=== PATIENT | male | born 1965 | race Caucasian/White ===

== ENCOUNTER 2017-04-07 16:56 | Inpatient (IN) | payer OTHER ==
[~2017-04-07] VITALS: Ht 175.3 cm; Wt 55.6 kg
[~2017-04-07 16:56] MED LIST: ACAM333T7 PO; AMLO10TA2 PO; AMOX1TAB61 PO; BACL10TA PO; CELE200C PO; CHOL500015 PO; CITA40TA5 PO; CYCL10TA2 PO; ERGO500012 PO; FERR-26 PO; FLUO20CA8 PO; FLUO20TA11 PO; FURO-69 PO; GABA-585 PO; HYDR-2666 PO; IBUP200T58 PO; LACT10SO35 PO; LACT20SO PO; LIDO700A4 TP; LISI1TAB5 PO; METO100T11 PO; METR500T PO; MORP30TA3 PO; OXYC10TA PO; PANT40TA3 PO; POTA20TA4 PO; PROAIR HFA8.5 GM INH; SPIR50TA2 PO; TEMA30CA PO; TIZA4TAB PO; TIZA4TAB8 PO; ZOLP10TA4 PO; acetaminophen
[2017-04-07 18:14] LABS: BASO % 1 % (0-3); EOS % 1 % (0-3); HEMATOCRIT 33.3 % (39.0-53.0); HEMOGLOBIN 11.3 g/dL (13.0-17.5); LYMPH # 1.1 x10^3/uL (1.0-4.8); LYMPH % 22 % (24-48); MEAN CORPUSCULAR HEMOGLOBIN 34 pg (25-35); MEAN CORPUSCULAR HGB CONC 34 g/dL (31-37); MEAN CORPUSCULAR VOLUME 100 fL (79-100); MONO % 9 % (0-9); NEUT % 67 % (31-73); PLATELET COUNT 110 x10^3/uL (140-400); RED BLOOD COUNT 3.32 x10^6/uL (4.30-5.70); RED CELL DISTRIBUTION WIDTH 14.7 % (11.5-14.5); WHITE BLOOD COUNT 4.8 x10^3/uL (4.0-11.0)
[2017-04-07 18:21] LABS: BASE EXCESS COOX 4 mmol/L (-3-3); CARBON MONOXIDE 6.4 % (0.0-1.9); HCO3 COOX 28 mmol/L (21-28); METHEMOGLOBIN 0.4 % (0.0-1.9); OXYHEMOGLOBIN 89.1 %; PCO2 COOX 39 mmHg (35-46); PH COOX 7.47 (7.35-7.45); PO2 COOX 84 mmHg (75-108); SAT O2 COOX 96 % (92-99); TOTAL HEMOGLOBIN 10.6 g/dL
[2017-04-07 18:23] LABS: INR 1.1 (0.8-1.1); PROTHROMBIN TIME PATIENT 13.2 SEC (11.7-14.0)
[2017-04-07 18:34] LABS: ALBUMIN 2.5 g/dL (3.4-5.0); CALCIUM 8.7 mg/dL (8.5-10.1); CREATININE 0.7 mg/dL (0.7-1.3); DIRECT BILIRUBIN 4.7 mg/dL (0.0-0.2); GFR 119.4; TOTAL BILIRUBIN 5.3 mg/dL (0.2-1.0); TOTAL PROTEIN 8.5 g/dL (6.4-8.2)
[2017-04-07 18:43] LABS: POTASSIUM 2.2 mmol/L (3.5-5.1)
[2017-04-07] MEDS ORDERED: POTASSIUM CHLORIDE 20 MEQ TABLET.ER. PO ONE (19:00)
--- NOTE | 2017-04-07 19:05 | PHYS DOC ---
Past Medical History Past Medical History: Hypertension, Liver Disease, Other Additional Past Medical Histor: ESLD and recurrent ascites,myelitis, paraplegia , chronic back pain Past Surgical History: Other Additional Past Surgical Histo: TRACH W/ TAKEDOWN, LEFT HIP REPAIR Alcohol Use: None Additional Information: quit drinking 6 months ago Drug Use: Marijuana Adult General Chief Complaint Chief Complaint: MULTIPLE COMPLAINTS HPI HPI Patient is a 51 year old male with end stage liver disease and recurrent ascites who presents by EMS from public place after bystanders noticed him falling asleep frequently. States he has some general weakness. He notes recently leaving the hospital and making the choice to not go to rehab or nursing facility. States he has been taking his meds, but cannot name them. Otherwise states he is feeling ok other than chronic pains and forming ulcers to bilateral buttocks. He denies injury since discharge from hospital. Denies abdominal pain, n/v, diarrhea, f/c, headache, vision changes, dizziness, numbness, tingling, focal weakness. Review of Systems Review of Systems Constitutional: Denies fever or chills [] Eyes: Denies change in visual acuity, redness, or eye pain [] HENT: Denies nasal congestion or sore throat [] Respiratory: Denies cough or shortness of breath [] Cardiovascular: No additional information not addressed in HPI [] GI: Denies abdominal pain, nausea, vomiting, bloody stools or diarrhea [] : Denies dysuria or hematuria [] Musculoskeletal: Denies joint pain [] Integument: Denies rash [] Neurologic: Denies headache, focal weakness or sensory changes [] Endocrine: Denies polyuria or polydipsia [] Current Medications Current Medications Allergies Allergies Allergies Coded Allergies Type Severity Reaction Last Updated Verified I S O L A T I O N *CONTACT* Allergy Unknown 07/15/16 Yes No Known Medication Allergies Allergy Unknown 07/15/16 Yes Physical Exam Physical Exam Constitutional: Well developed, well nourished, no acute distress, non-toxic appearance. [] HENT: Normocephalic, atraumatic, bilateral external ears normal, oropharynx moist, nose normal. [] Eyes: PERRLA, EOMI. [] Neck: Normal range of motion, supple. [] Cardiovascular:Heart rate regular rhythm, no murmur [] Lungs & Thorax: Bilateral breath sounds clear to auscultation [] Abdomen: Bowel sounds normal, soft, no tenderness. [] Skin: Warm, dry, no erythema, no rash. Jaundiced. Right buttock with shallow ulceration [] Back: No tenderness, no CVA tenderness. [] Extremities: No tenderness, ROM intact, no edema. [] Neurologic: Alert but speaks slowly and oriented X 3, normal motor function, normal sensory function, no focal deficits noted. [] Psychologic: Affect normal, judgement normal, mood normal. [] Current Patient Data Vital Signs Vital Signs Date Time Temp Pulse Resp B/P (MAP) Pulse Ox O2 Delivery O2 Flow Rate FiO2 04/07/17 18:37 76 115/63 (80) Room Air 04/07/17 18:07 99 04/07/17 17:37 28 04/07/17 17:07 97.6 97.6 Lab Values Laboratory Tests Test 04/07/17 17:41 04/07/17 18:05 O2 Saturation 96 % (92-99) Arterial Blood pH 7.47 (7.35-7.45) H Arterial Blood pCO2 at Patient Temp 39 mmHg (35-46) Arterial Blood pO2 at Patient Temp 84 mmHg (75-108) Arterial Blood HCO3 28 mmol/L (21-28) Arterial Blood Base Excess 4 mmol/L (-3-3) H Oxyhemoglobin 89.1 % Methemoglobin 0.4 % (0.0-1.9) Carbon Monoxide, Quantitative 6.4 % (0.0-1.9) H FiO2 21.0 White Blood Count 4.8 x10^3/uL (4.0-11.0) Red Blood Count 3.32 x10^6/uL (4.30-5.70) L Hemoglobin 11.3 g/dL (13.0-17.5) L Hematocrit 33.3 % (39.0-53.0) L Mean Corpuscular Volume 100 fL (79-100) Mean Corpuscular Hemoglobin 34 pg (25-35) Mean Corpuscular Hemoglobin Concent 34 g/dL (31-37) Red Cell Distribution Width 14.7 % (11.5-14.5) H Platelet Count 110 x10^3/uL (140-400) L Neutrophils (%) (Auto) 67 % (31-73) Lymphocytes (%) (Auto) 22 % (24-48) L Monocytes (%) (Auto) 9 % (0-9) Eosinophils (%) (Auto) 1 % (0-3) Basophils (%) (Auto) 1 % (0-3) Neutrophils # (Auto) 3.2 x10^3uL (1.8-7.7) Lymphocytes # (Auto) 1.1 x10^3/uL (1.0-4.8) Monocytes # (Auto) 0.4 x10^3/uL (0.0-1.1) Eosinophils # (Auto) 0.1 x10^3/uL (0.0-0.7) Basophils # (Auto) 0.0 x10^3/uL (0.0-0.2) Prothrombin Time 13.2 SEC (11.7-14.0) Prothrombin Time INR 1.1 (0.8-1.1) Sodium Level 137 mmol/L (136-145) Potassium Level 2.2 mmol/L (3.5-5.1) *L Chloride Level 96 mmol/L (98-107) L Carbon Dioxide Level 33 mmol/L (21-32) H Anion Gap 8 (6-14) Blood Urea Nitrogen 14 mg/dL (8-26) Creatinine 0.7 mg/dL (0.7-1.3) Estimated GFR (Cockcroft-Gault) 119.4 Glucose Level 80 mg/dL (70-99) Calcium Level 8.7 mg/dL (8.5-10.1) Total Bilirubin 5.3 mg/dL (0.2-1.0) H Direct Bilirubin 4.7 mg/dL (0.0-0.2) H Aspartate Amino Transferase (AST) 50 U/L (15-37) H Alanine Aminotransferase (ALT) 31 U/L (16-63) Alkaline Phosphatase 401 U/L (46-116) H Ammonia 22 mcmol/L (11-34) Total Protein 8.5 g/dL (6.4-8.2) H Albumin 2.5 g/dL (3.4-5.0) L Laboratory Tests 04/07/17 18:05 Laboratory Tests 04/07/17 18:05 Course & Med Decision Making Course & Med Decision Making Pertinent Labs and Imaging studies reviewed. (See chart for details) Has significant hypokalemia, but laboratory evaluation is otherwise largely unremarkable. Will admit for IV replacement. Discussed case with Dr. Allen, who will admit. Dragon Disclaimer Dragon Disclaimer This electronic medical record was generated, in whole or in part, using a voice recognition dictation system. Departure Departure Impression: Primary Impression: Metabolic encephalopathy Additional Impression: Hypokalemia Disposition: ADMITTED INPATIENT Condition: STABLE Referrals: VANI BOLTON MD (PCP) Problem Qualifiers Faiza CORREA MD April 07, 2017 19:05
[2017-04-07] MEDS: POTASSIUM CHLORIDE 10MEQ 100 ML IV SCH ×4 (19:12→22:42)
[2017-04-07] MEDS: IV NORMAL SALINE 1000ML BAG 1,000 ML IV SCH (19:15)
--- NOTE | 2017-04-07 19:16 | PDOC1 ---
History and Physical Date of Admission Date of Admission DATE: 04/07/17 TIME: 19:11 Identification/Chief Complaint Chief Complaint falling asleep at [facility] Problems: Source Source: Caregiver, Chart review, Patient History of Present Illness History of Present Illness 51 y.o male, known to us, lots of admits, last one i saw him was for: (Jul 2016) 1. Acute upper GI bleed due to duodenal ulcers s/p EGD with emergent IR intervention to stop bleeding 2. Hypovolemic/Hemorrhagic shock, resolved 3. Hypoxic respiratory failure, resolved 4. ETOH abuse 5. Hypertension, stab;e 6. Hx of alcoholic cirrhosis 7. Tremors resting 8. ETOH withdrawal 9. Paraplegic - wheel chair bound 10. Hypokalemia 11. Back pain Abd tender to palpation, tympanic, dull too, seems some have ascites, falls asleep. K 2.2, no ammonia, rest of labs and VS ok. Pt admitted for K replacement, drowsiness and further work up No UDs yet. Rest of hx limited, drowsy - .lots of GI probs.past medical Past Medical History Cardiovascular: AFIB, HTN Pulmonary: COPD CENTRAL NERVOUS SYSTEM: Other GI: GI bleed, Other Heme/Onc: Anemia NOS Hepatobiliary: Other Psych: Addictions Musculoskeletal: Muscle atrophy, Other Rheumatologic: No pertinent hx Infectious disease: No pertinent hx Renal/: No pertinent hx Endocrine: No pertinent hx Past Surgical History Past Surgical History: Other Family History Family History: Diabetes, Hypertension Social History Smoke: No ALCOHOL: none Drugs: None Current Problem List Problem List Problems Medical Problems: (1) Hypokalemia Status: Acute (2) Metabolic encephalopathy Status: Acute Problems: Current Medications Current Medications Current Medications Potassium Chloride 100 ml @ 100 mls/hr Q1H IV ; Start 04/07/17 at 19:00; Stop 04/07/17 at 22:59 Potassium Chloride (Klor-Con) 40 meq 1X ONCE PO ; Start 04/07/17 at 19:00; Stop 04/07/17 at 19:01; Status DC Active Scripts Active Lasix (Furosemide) 20 Mg Tablet 60 Tab PO DAILY Reported Vitamin D2 (Ergocalciferol (Vitamin D2)) 50,000 Unit Capsule 1 Cap PO 3X/WEEK Generlac (Lactulose) 10 Gm/15 Ml Solution 10 Gm PO BID Citalopram Hbr (Citalopram Hydrobromide) 40 Mg Tablet 1 Tab PO DAILY Fluoxetine Hcl 20 Mg Tablet 30 Mg PO DAILY Gabapentin 100 Mg Capsule 100 Mg PO TID Acamprosate Calcium 333 Mg Tablet.dr 2 Tab PO TID 90 Days Tizanidine Hcl 4 Mg Tablet 4 Mg PO PRN Q8HRS PRN Baclofen 10 Mg Tablet 2 Tab PO TID Zolpidem Tartrate 10 Mg Tablet 1 Tab PO QHS Temazepam 30 Mg Capsule 30 Mg PO HS PRN Lactulose 20 Gm/30 Ml Solution 20 Gm PO TID Cyclobenzaprine Hcl 10 Mg Tablet 1 Tab PO TID PRN Protonix (Pantoprazole Sodium) 40 Mg Tablet.dr 40 Mg PO DAILY Amlodipine Besylate 10 Mg Tablet 10 Mg PO DAILY Gave this morning Take tomorrow morning Allergies Allergies: Coded Allergies: I S O L A T I O N *CONTACT* (Verified Allergy, Unknown, 07/15/16) mrsa + No Known Medication Allergies (Verified Allergy, Unknown, 07/15/16) ROS Review of System cant be obtained, drowsy Physical Exam General: No acute distress, Other (drowsy) HEENT: Atraumatic Lungs: Normal air movement, Other (dec BS poor effort) Heart: S1S2, RRR, no thrills, no rubs Cardiovascular: S1, S2 Breasts: Normal Abdomen: Soft, Other (ascites, tender to palpation) Rectal Exam: not examined PELVIC: Nml ext genitalia Extremities: No clubbing, No cyanosis, No edema, Normal pulses, No tenderness/ swelling Skin: No rashes, No breakdown, No significant lesion Neuro: Normal gait, Normal speech, Strength at 5/5 X4 ext, Normal tone, Sensation intact, Cranial nerves 3-12 NL, Reflexes 2+ Psych/Mental Status: Other (cant assess) Vitals Vitals Vital Signs Date Time Temp Pulse Resp B/P (MAP) Pulse Ox O2 Delivery O2 Flow Rate FiO2 04/07/17 18:37 76 115/63 (80) Room Air 04/07/17 18:07 99 04/07/17 17:37 28 04/07/17 17:07 97.6 97.6 Labs Labs Laboratory Tests Test 04/07/17 17:41 04/07/17 18:05 O2 Saturation 96 % (92-99) Arterial Blood pH 7.47 (7.35-7.45) Arterial Blood pCO2 at Patient Temp 39 mmHg (35-46) Arterial Blood pO2 at Patient Temp 84 mmHg (75-108) Arterial Blood HCO3 28 mmol/L (21-28) Arterial Blood Base Excess 4 mmol/L (-3-3) Oxyhemoglobin 89.1 % Methemoglobin 0.4 % (0.0-1.9) Carbon Monoxide, Quantitative 6.4 % (0.0-1.9) FiO2 21.0 White Blood Count 4.8 x10^3/uL (4.0-11.0) Red Blood Count 3.32 x10^6/uL (4.30-5.70) Hemoglobin 11.3 g/dL (13.0-17.5) Hematocrit 33.3 % (39.0-53.0) Mean Corpuscular Volume 100 fL (79-100) Mean Corpuscular Hemoglobin 34 pg (25-35) Mean Corpuscular Hemoglobin Concent 34 g/dL (31-37) Red Cell Distribution Width 14.7 % (11.5-14.5) Platelet Count 110 x10^3/uL (140-400) Neutrophils (%) (Auto) 67 % (31-73) Lymphocytes (%) (Auto) 22 % (24-48) Monocytes (%) (Auto) 9 % (0-9) Eosinophils (%) (Auto) 1 % (0-3) Basophils (%) (Auto) 1 % (0-3) Neutrophils # (Auto) 3.2 x10^3uL (1.8-7.7) Lymphocytes # (Auto) 1.1 x10^3/uL (1.0-4.8) Monocytes # (Auto) 0.4 x10^3/uL (0.0-1.1) Eosinophils # (Auto) 0.1 x10^3/uL (0.0-0.7) Basophils # (Auto) 0.0 x10^3/uL (0.0-0.2) Prothrombin Time 13.2 SEC (11.7-14.0) Prothromb Time International Ratio 1.1 (0.8-1.1) Sodium Level 137 mmol/L (136-145) Potassium Level 2.2 mmol/L (3.5-5.1) Chloride Level 96 mmol/L (98-107) Carbon Dioxide Level 33 mmol/L (21-32) Anion Gap 8 (6-14) Blood Urea Nitrogen 14 mg/dL (8-26) Creatinine 0.7 mg/dL (0.7-1.3) Estimated GFR (Cockcroft-Gault) 119.4 Glucose Level 80 mg/dL (70-99) Calcium Level 8.7 mg/dL (8.5-10.1) Total Bilirubin 5.3 mg/dL (0.2-1.0) Direct Bilirubin 4.7 mg/dL (0.0-0.2) Aspartate Amino Transf (AST/SGOT) 50 U/L (15-37) Alanine Aminotransferase (ALT/SGPT) 31 U/L (16-63) Alkaline Phosphatase 401 U/L (46-116) Ammonia 22 mcmol/L (11-34) Total Protein 8.5 g/dL (6.4-8.2) Albumin 2.5 g/dL (3.4-5.0) Laboratory Tests Test 04/07/17 17:41 04/07/17 18:05 O2 Saturation 96 % (92-99) Arterial Blood pH 7.47 (7.35-7.45) Arterial Blood pCO2 at Patient Temp 39 mmHg (35-46) Arterial Blood pO2 at Patient Temp 84 mmHg (75-108) Arterial Blood HCO3 28 mmol/L (21-28) Arterial Blood Base Excess 4 mmol/L (-3-3) Oxyhemoglobin 89.1 % Methemoglobin 0.4 % (0.0-1.9) Carbon Monoxide, Quantitative 6.4 % (0.0-1.9) FiO2 21.0 White Blood Count 4.8 x10^3/uL (4.0-11.0) Red Blood Count 3.32 x10^6/uL (4.30-5.70) Hemoglobin 11.3 g/dL (13.0-17.5) Hematocrit 33.3 % (39.0-53.0) Mean Corpuscular Volume 100 fL (79-100) Mean Corpuscular Hemoglobin 34 pg (25-35) Mean Corpuscular Hemoglobin Concent 34 g/dL (31-37) Red Cell Distribution Width 14.7 % (11.5-14.5) Platelet Count 110 x10^3/uL (140-400) Neutrophils (%) (Auto) 67 % (31-73) Lymphocytes (%) (Auto) 22 % (24-48) Monocytes (%) (Auto) 9 % (0-9) Eosinophils (%) (Auto) 1 % (0-3) Basophils (%) (Auto) 1 % (0-3) Neutrophils # (Auto) 3.2 x10^3uL (1.8-7.7) Lymphocytes # (Auto) 1.1 x10^3/uL (1.0-4.8) Monocytes # (Auto) 0.4 x10^3/uL (0.0-1.1) Eosinophils # (Auto) 0.1 x10^3/uL (0.0-0.7) Basophils # (Auto) 0.0 x10^3/uL (0.0-0.2) Prothrombin Time 13.2 SEC (11.7-14.0) Prothromb Time International Ratio 1.1 (0.8-1.1) Sodium Level 137 mmol/L (136-145) Potassium Level 2.2 mmol/L (3.5-5.1) Chloride Level 96 mmol/L (98-107) Carbon Dioxide Level 33 mmol/L (21-32) Anion Gap 8 (6-14) Blood Urea Nitrogen 14 mg/dL (8-26) Creatinine 0.7 mg/dL (0.7-1.3) Estimated GFR (Cockcroft-Gault) 119.4 Glucose Level 80 mg/dL (70-99) Calcium Level 8.7 mg/dL (8.5-10.1) Total Bilirubin 5.3 mg/dL (0.2-1.0) Direct Bilirubin 4.7 mg/dL (0.0-0.2) Aspartate Amino Transf (AST/SGOT) 50 U/L (15-37) Alanine Aminotransferase (ALT/SGPT) 31 U/L (16-63) Alkaline Phosphatase 401 U/L (46-116) Ammonia 22 mcmol/L (11-34) Total Protein 8.5 g/dL (6.4-8.2) Albumin 2.5 g/dL (3.4-5.0) VTE Prophylaxis Ordered VTE Prophylaxis Devices: Yes VTE Pharmacological Prophylaxi: Yes Assessment/Plan Assessment/Plan 1. Drowsiness, encephalopathy - unclear etiology - check CT scan (abdomen is tender and has ascites), check ammonia, lost of known GI probs in past 2. Hypokalemia, critical - er to replace HX of: 1. Acute upper GI bleed due to duodenal ulcers s/p EGD with emergent IR intervention to stop bleeding 2. Hypovolemic/Hemorrhagic shock, resolved 3. Hypoxic respiratory failure, resolved 4. ETOH abuse 5. Hypertension, stab;e 6. Hx of alcoholic cirrhosis 7. Tremors resting 8. ETOH withdrawal 9. Paraplegic - wheel chair bound 10. Hypokalemia 11. Back pain PLAN: Admit tele replace K Check CT abd Check ammonia rest of plan pending course PT/OT \Await home emds WOF: anemia, falls DVT prophy Seen at ER CHIDI RIVAS MD April 07, 2017 19:16
[2017-04-07] MEDS ORDERED: MAGNESIUM HYDROXIDE 2,400 MG/30 ML ORAL.SUSP. PO PRN (19:30)
[2017-04-07] MEDS ORDERED: CALCIUM CARBONATE 500 MG TAB.CHEW PO PRN (19:30)
[2017-04-07] MEDS ORDERED: BISACODYL 10 MG SUPP.RECT. PR PRN (19:30)
[2017-04-07] MEDS ORDERED: PROCHLORPERAZINE 25 MG SUPP.RECT. PR PRN (19:30)
[2017-04-07] MEDS ORDERED: MORPHINE SULFATE 2 MG/ML DISP.SYRIN. IV PRN (19:30)
[2017-04-07] MEDS ORDERED: PROCHLORPERAZINE 10 MG/2 ML VIAL. IV PRN (19:30)
[2017-04-07] MEDS ORDERED: MAG HYDROX/ALUMINUM HYD/SIMETH 30 ML ORAL.SUSP PO PRN (19:30)
[2017-04-07] MEDS ORDERED: LACTULOSE 20 GM/30 ML SOLUTION. PO PRN (19:30)
[2017-04-07] MEDS ORDERED: ONDANSETRON PF 4 MG/2 ML VIAL. IV PRN (19:30)
[2017-04-07] MEDS ORDERED: tiZANidine 4 MG TABLET. PO PRN (20:00)
[2017-04-07] MEDS ORDERED: TEMAZEPAM 15 MG CAPSULE PO PRN (20:00)
[2017-04-07] MEDS ORDERED: CYCLOBENZAPRINE 10 MG TABLET. PO PRN (20:00)
[2017-04-07 20:10] VITALS: BP 131/71
--- NOTE | 2017-04-07 20:48 | RAD ---
PROCEDURE Limited abdominal ultrasound dated 04/07/2017. HISTORY Quantify ascites. TECHNIQUE Limited 4 quadrant ultrasound performed. COMPARISON None. FINDINGS Small to moderate amount of ascites throughout. The largest pocket is located in the right upper quadrant measures up to 11.9 centimeter. There is also a 10 centimeter pocket in the right lower quadrant. IMPRESSION Small to moderate amount of ascites. Electronically signed by: Roman Weiner (April 07, 2017 20:47:52)
[2017-04-07] MEDS ORDERED: LACTULOSE 10 GM PO SCH (21:00)
[2017-04-07] MEDS: LACTULOSE 20 GM/30 ML SOLUTION. PO SCH (21:25)
[2017-04-07] MEDS: BACLOFEN 10 MG TABLET. PO SCH (21:25)
[2017-04-07] MEDS: DOCUSATE SODIUM 100 MG CAPSULE. PO SCH (21:25)
[2017-04-07] MEDS: GABAPENTIN 100 MG CAPSULE. PO SCH (21:25)
[2017-04-07] MEDS: oxyCODONE IR 5 MG TABLET PO PRN (21:27)
[2017-04-07] MEDS: ACAMPROSATE CALCIUM PO SCH (21:50)
--- NOTE | 2017-04-07 21:50 | ACF ---
Admission Forms Criteria HYPONATREMIA; HYPERNATREMIA; HYPOKALEMIA; HYPERKALEMIA; HYPOCALCEMIA; HYPERCALCEMIA Clinical Indications for Inpatient Care (Place 'X' for any and all applicable criteria): Ongoing inpatient care may be indicated for ANY ONE of the following [G](1)(2)(3 )(5): [ ]I. Hyponatremia with ANY ONE of the following: [ ]a) Sodium less than 130 mEq/L (mmol/L) (new) (6)(22) [ ]b) Sodium less than 135 mEq/L (mmol/L) with ANY ONE of the following: [ ]i) Severe medical etiology requiring inpatient management (eg, heart failure, hypovolemia) [ ]ii) Altered mental status [ ]iii) Seizures [ ]II. Hypernatremia with ANY ONE of the following: [ ]a) Sodium greater than 155 mEq/L (mmol/L) [ ]b) Sodium greater than 150 mEq/L (mmol/L) with ANY ONE of the following: [ ] i) Altered mental status [ ]ii) Seizures [ ]iii) Severe medical etiology (eg, hypovolemia, diabetes insipidus) [ ]iv) Severe weakness [ ]v) Severe medical etiology (eg, hemolysis, infection, drug overdose) [X ]III. Hypokalemia with ANY ONE of the following: [X ]a) Potassium less than 2.5 mEq/L (mmol/L) despite outpatient and emergency treatment [ ]b) Potassium less than 3.0 mEq/L (mmol/L) with ANY ONE of the following: [ ]i) Weakness [ ]ii) Cardiac abnormality (eg, arrhythmia, conduction disturbance) [ ]iii) Cardiac ischemia [ ]iv) Ileus [ ]v) Ongoing medical cause requiring inpatient management. ( e.g., acute renal wasting, SIADH) [ ]vi) Other severe symptoms [ ] IV. Hyperkalemia with ANY ONE of the following: [ ]a) Potassium greater than 6.5 mEq/L (mmol/L) [ ]b) Potassium greater than 5 mEq/L (mmol/L) with ANY ONE of the following: [ ]i) Severe ECG findings [H] [ ]ii) Acute worsening of renal failure (creatinine greater than 2.5 mg/dL (221 micromoles/L) or significant elevation for age and size) [ ] V. Hypocalcemia with ANY ONE of the following: [ ]a) Calcium less than 7 mg/dL (1.75 mmol/L) despite outpatient and emergency treatment(19) [ ]b) Calcium less than 8 mg/dL (2 mmol/L) with significant symptoms or findings; examples include: [ ]i) Cardiac abnormality (eg, arrhythmia or conduction disturbance) [ ]ii) Altered mental status [ ]iii) Seizures [ ]iv) Breathing difficulty [ ]v) Muscle spasms [ ]. Hypercalcemia with ANY ONE of the following: [ ]a) Calcium greater than 14 mg/dL (3.5 mmol/L) [ ]b) Calcium greater than 12 mg/dL (3 mmol/L) with ANY ONE of the following: [ ]i) Significant dehydration or hypovolemia as indicated by ANY ONE of the following(2): [ ]1. Clinically significant dehydration as indicated by ANY ONE of the following: [ ]A. Acute loss of weight from baseline (5% of body weight in adults, 9% in pediatric patients) [ ]B. Hemodynamic instability [ ]C. Acute renal failure [ ]D. Serum sodium greater than 150 mEq/L (mmol/L) [ ]2) Dehydration that is persistent indicated by ALL of the following: [ ]A. Oral rehydration therapy not tolerated or insufficient to adequately correct dehydration [ ]B. Appropriate intravenous treatment (eg, fluids ) does not readily correct dehydration ie, after 12 to 24 hours of treatment) [ ]ii) Significant symptoms or findings; examples include: [ ]1) Altered mental status [ ]2) Cardiac abnormality (eg, arrhythmia, conduction disturbance) [ ]3) Cardiac abnormality (eg, arrhythmia, conduction disturbance) The original [facility] content created by [email or web address] has been revised. The portions of the content which have been revised are identified through the use of italic text or in bold, and [facility] has neither reviewed nor approved the modified material. All other unmodified content is copyright [facility] [employer] Please see references footnoted in the original [facility] [employer] edition 2016 Admission Criteria Met?: Yes YEIMI FRANCIS April 07, 2017 21:50
[2017-04-07 23:59] VITALS: BP 134/67
[2017-04-08 07:00] VITALS: BP 124/71
[2017-04-08] MEDS ORDERED: PANTOPRAZOLE 40 MG TABLET.DR. PO SCH (07:00)
[2017-04-08] MEDS: IV NORMAL SALINE 1000ML BAG 1,000 ML IV SCH (08:12)
[2017-04-08] MEDS: ACAMPROSATE CALCIUM PO SCH ×2 (08:13→14:13)
[2017-04-08] MEDS: LACTULOSE 20 GM/30 ML SOLUTION. PO SCH ×2 (08:13→14:13)
[2017-04-08] MEDS: DOCUSATE SODIUM 100 MG CAPSULE. PO SCH (08:14)
[2017-04-08] MEDS: BACLOFEN 10 MG TABLET. PO SCH ×2 (08:14→14:12)
[2017-04-08] MEDS: GABAPENTIN 100 MG CAPSULE. PO SCH ×2 (08:14→14:12)
[2017-04-08] MEDS: oxyCODONE/APAP 5/325 1 TAB TABLET PO PRN ×2 (08:29→14:13)
[2017-04-08] MEDS ORDERED: FLUoxetine HCL 10 MG CAPSULE PO SCH (09:00)
[2017-04-08] MEDS ORDERED: ENOXAPARIN 40 MG/0.4 ML SYRINGE. SQ SCH (09:00)
[2017-04-08] MEDS ORDERED: amLODIPine BESYLATE 10 MG TABLET PO SCH (09:00)
[2017-04-08] MEDS ORDERED: FUROSEMIDE 20 MG TABLET PO SCH (09:00)
[2017-04-08] MEDS ORDERED: CITALOPRAM 20 MG TABLET. PO SCH (09:00)
[2017-04-08] MEDS: oxyCODONE IR 5 MG TABLET PO PRN (10:43)
[2017-04-08] MEDS ORDERED: POTA20TA84 PO (10:46)
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
[2017-04-08 11:04] VITALS: BP 124/69
[2017-04-08 11:07] LABS: CALCIUM 8.1 mg/dL (8.5-10.1); CREATININE 0.5 mg/dL (0.7-1.3); POTASSIUM 3.3 mmol/L (3.5-5.1)
[2017-04-08] MEDS ORDERED: POTASSIUM CHLORIDE 20 MEQ TABLET.ER. PO ONE (12:00)
[2017-04-10] MEDS ORDERED: ERGOCALCIFEROL (VITAMIN D2) 50,000 UNIT CAPSULE. PO SCH (09:00)
== END 2017-04-08 14:35 | disposition home or self-care (01) | DRG 640 ==
LOC: ER 17:48 → 5 SOUTH 18:50
PROVIDERS: ADMIT Internal Medicine; ATTEND Internal Medicine
DX: E87.6 Hypokalemia (principal); G93.41 Metabolic encephalopathy; F10.239 Alcohol dependence with withdrawal, unspecified; G82.20 Paraplegia, unspecified; I10 Essential (primary) hypertension; E86.1 Hypovolemia; G89.29 Other chronic pain; K70.31 Alcoholic cirrhosis of liver with ascites; K72.90 Hepatic failure, unspecified without coma; J44.9 Chronic obstructive pulmonary disease, unspecified; I48.91 Unspecified atrial fibrillation; Z83.3 Family history of diabetes mellitus; Z99.3 Dependence on wheelchair; Z82.49 Family history of ischemic heart disease and other diseases of the circulatory system
CPT/HCPCS: 36415; 36600; 76705; 80048; 80076; 82140; 82805; 85027; 85610; 87641; 96374; J1650; J2270; J3480; J7030; 99285-25

== ENCOUNTER 2017-05-09 12:09 | Inpatient (IN) | payer OTHER ==
[2017-05-08 22:00] VITALS: BP 121/82
[2017-05-09] VITALS (17 sets, daily range): BP systolic 115–171; BP diastolic 72–85
[~2017-05-09] VITALS: Ht 175.3 cm; Wt 63.7 kg
[~2017-05-09 12:09] MED LIST changes: -CHOL500015 PO; +CHOL500045 PO; -ERGO500012 PO; +ERGO500027 PO; -HYDR-2666 PO; +HYDR-2758 PO; +POTA20TA84 PO
[2017-05-09] MEDS ORDERED: IV NORMAL SALINE 1000ML BAG 1,000 ML IV ONE ×2 (12:15→13:00)
[2017-05-09 12:31] LABS: BASO % 1 % (0-3); EOS % 0 % (0-3); HEMATOCRIT 26.3 % (39.0-53.0); HEMOGLOBIN 8.9 g/dL (13.0-17.5); LYMPH # 0.7 x10^3/uL (1.0-4.8); LYMPH % 12 % (24-48); MEAN CORPUSCULAR HEMOGLOBIN 33 pg (25-35); MEAN CORPUSCULAR HGB CONC 34 g/dL (31-37); MEAN CORPUSCULAR VOLUME 98 fL (79-100); MONO % 8 % (0-9); NEUT % 79 % (31-73); PLATELET COUNT 85 x10^3/uL (140-400); RED CELL DISTRIBUTION WIDTH 14.8 % (11.5-14.5)
--- NOTE | 2017-05-09 12:35 | RAD ---
EXAM: CHEST 1 VIEW History: Altered mental status COMPARISON: 03/28/2017 TECHNIQUE: Single portable radiograph of the chest FINDINGS: The cardiac silhouette is unremarkable. The lungs are clear bilaterally. The costophrenic sulci are clear and well demarcated. IMPRESSION: No radiographic evidence of an acute cardiopulmonary process.
[2017-05-09 12:40] LABS: INR 1.4 (0.8-1.1); PROTHROMBIN TIME PATIENT 15.9 SEC (11.7-14.0)
[2017-05-09] MEDS ORDERED: NALOXONE 2 MG in IV DEXTROSE 5% 500 ML IV ONE (12:45)
[2017-05-09] MEDS ORDERED: NALOXONE 2 MG/2 ML DISP.SYRIN. IV ONE (12:45)
--- NOTE | 2017-05-09 12:45 | EKG ---
[facility] [address] [place] [address] Test Date: 2017-05-09 Test Time: 12:16:53 Pat Name: SUSAN SOW Department: Room: Gender: M Chemistry Associate: : 1965 Requested By: Faiza CORREA Order Number: [id number] Reading MD: Ky Reeves Measurements Intervals [place] Rate: 75 P: 45 CT: 150 QRS: 61 QRSD: 76 T: 71 QT: 434 QTc: 488 Interpretive Statements SINUS RHYTHM LOW LIMB LEAD VOLTAGE PROLONGED QT RI6.01 Unconfirmed report Compared to ECG 03/15/2017 15:37:59 Prolonged QT interval now present T-wave abnormality no longer present Electronically Signed On 05-10-2017 11:24:57 CDT by Ky Reeves
[2017-05-09 12:51] LABS: BILIRUBIN,URINE SMALL (NEG); GLUCOSE,URINE NEGATIVE (NEG); NITRITE,URINE NEGATIVE (NEG); PH,URINE 5.5; PROTEIN,URINE NEGATIVE (NEG-TRACE)
[2017-05-09 12:57] LABS: CREATININE 0.7 mg/dL (0.7-1.3); GFR 119.4; POTASSIUM 3.3 mmol/L (3.5-5.1)
[2017-05-09 12:58] LABS: BARBITURATES NEG (NEG); BENZODIAZEPINES POS (NEG); CANNABINOIDS POS (NEG); COCAINE NEG (NEG); METHADONE NEG (NEG); OPIATES NEG (NEG); PHENCYCLIDINE NEG (NEG)
[2017-05-09 13:01] LABS: ALBUMIN 1.9 g/dL (3.4-5.0); ALBUMIN/GLOBULIN RATIO 0.4 (1.0-1.7); MAGNESIUM 1.8 mg/dL (1.8-2.4); TOTAL BILIRUBIN 2.9 mg/dL (0.2-1.0); TOTAL PROTEIN 6.4 g/dL (6.4-8.2)
[2017-05-09 13:06] LABS: BACTERIA,URINE 0 /HPF (0-FEW); SQUAMOUS EPITHELIAL CELL,UR FEW /LPF; WBC,URINE 20-40 /HPF (0-4)
--- NOTE | 2017-05-09 13:21 | RAD ---
Indication change in level of consciousness. Noncontrast images of the head were obtained. Note is made of a previous examination 03/15/2017. The calvarium appears unremarkable. No subdural or epidural hematoma is seen. There is no mass or midline shift. There is modest underlying atrophy. There is no hemorrhage. Acute finding is not seen. IMPRESSION: No acute intracranial finding seen PQRS Compliance Statement: One or more of the following individualized dose reduction techniques were utilized for this examination: 1. Automated exposure control 2. Adjustment of the mA and/or kV according to patient size 3. Use of iterative reconstruction technique
--- NOTE | 2017-05-09 13:22 | PHYS DOC ---
Past Medical History Past Medical History: Hypertension, Liver Disease, Renal Disease, Other Additional Past Medical Histor: ESLD and recurrent ascites,myelitis, paraplegia , chronic back pain Past Surgical History: Other Additional Past Surgical Histo: TRACH W/ TAKEDOWN, LEFT HIP REPAIR Alcohol Use: Heavy Drug Use: Marijuana Adult General Chief Complaint Chief Complaint: ALTERED MENTAL STATUS HPI HPI Patient is a 51 year old male who presents by EMS for altered mental status and low blood pressure. He was found by bystanders in his wheelchair next to a trash can. Patient states he was trying to take the trash out, but was generally too weak. He admits to taking pain medicine earlier today. EMS gave him 2 mg of Narcan without significant improvement of his mental status. Prehospital glucose was not low. He otherwise denies other complaints at this time. He denies headache, chest pain, dizziness, nausea or vomiting, diarrhea, dysuria, fever or chills. Review of Systems Review of Systems Constitutional: Denies fever or chills [] Eyes: Denies change in visual acuity, redness, or eye pain [] HENT: Denies nasal congestion or sore throat [] Respiratory: Denies cough or shortness of breath [] Cardiovascular: No additional information not addressed in HPI [] GI: Denies abdominal pain, nausea, vomiting, bloody stools or diarrhea [] : Denies dysuria or hematuria [] Musculoskeletal: Denies back pain or joint pain [] Integument: Denies rash or skin lesions [] Neurologic: Denies headache, focal weakness or sensory changes [] Endocrine: Denies polyuria or polydipsia [] Current Medications Current Medications Current Medications Medications (Trade) Dose Ordered Sig/Thao Start Time Stop Time Status Last Admin Dose Admin Naloxone HCl (Narcan) 2 mg 1X ONCE 05/09/17 12:45 05/09/17 12:46 DC 05/09/17 12:35 2 MG Naloxone HCl 2 mg/ Dextrose 502 ml @ 0 mls/hr 1X ONCE 05/09/17 12:45 05/09/17 13:12 DC 05/09/17 12:46 62.5 MLS/HR Sodium Chloride 1,000 ml @ 1,000 mls/hr 1X ONCE 05/09/17 13:00 05/09/17 13:59 DC 05/09/17 12:52 1,000 MLS/HR Allergies Allergies Allergies Coded Allergies Type Severity Reaction Last Updated Verified I S O L A T I O N *CONTACT* Allergy Unknown 07/15/16 Yes No Known Medication Allergies Allergy Unknown 07/15/16 Yes Physical Exam Physical Exam Constitutional: Thin, non-toxic appearance. [] HENT: Normocephalic, atraumatic, bilateral external ears normal, oropharynx moist, no oral exudates, nose normal. [] Eyes: PERRLA, EOMI, conjunctiva normal, no discharge. [] Neck: Normal range of motion, no tenderness, supple, no stridor. [] Cardiovascular:Heart rate regular rhythm [] Lungs & Thorax: Bilateral breath sounds clear to auscultation [] Abdomen: Bowel sounds normal, soft, no tenderness, no masses, no pulsatile masses, soft with distended. Rectal exam with light brown stool on glove. Few shallow ulcers to gluteal area bilaterally [] Skin: Warm, dry, no erythema, no rash. [] Back: No tenderness, no CVA tenderness. [] Extremities: No tenderness, ROM intact, no edema. [] Neurologic: Sleepy but arouses to painful stimuli, oriented X 3, paraplegic, normal sensory function. [] Psychologic: Affect normal, judgement normal, mood normal. [] Current Patient Data Vital Signs Vital Signs Date Time Temp Pulse Resp B/P (MAP) Pulse Ox O2 Delivery O2 Flow Rate FiO2 05/09/17 12:59 76 14 99/66 (77) 98 05/09/17 12:52 Room Air 05/09/17 12:09 97.6 97.6 Lab Values Laboratory Tests Test 05/09/17 12:18 05/09/17 12:44 05/09/17 13:17 White Blood Count 6.0 x10^3/uL (4.0-11.0) Red Blood Count 2.70 x10^6/uL (4.30-5.70) L Hemoglobin 8.9 g/dL (13.0-17.5) L Hematocrit 26.3 % (39.0-53.0) L Mean Corpuscular Volume 98 fL (79-100) Mean Corpuscular Hemoglobin 33 pg (25-35) Mean Corpuscular Hemoglobin Concent 34 g/dL (31-37) Red Cell Distribution Width 14.8 % (11.5-14.5) H Platelet Count 85 x10^3/uL (140-400) L Neutrophils (%) (Auto) 79 % (31-73) H Lymphocytes (%) (Auto) 12 % (24-48) L Monocytes (%) (Auto) 8 % (0-9) Eosinophils (%) (Auto) 0 % (0-3) Basophils (%) (Auto) 1 % (0-3) Neutrophils # (Auto) 4.8 x10^3uL (1.8-7.7) Lymphocytes # (Auto) 0.7 x10^3/uL (1.0-4.8) L Monocytes # (Auto) 0.5 x10^3/uL (0.0-1.1) Eosinophils # (Auto) 0.0 x10^3/uL (0.0-0.7) Basophils # (Auto) 0.0 x10^3/uL (0.0-0.2) Prothrombin Time 15.9 SEC (11.7-14.0) H Prothrombin Time INR 1.4 (0.8-1.1) H PTT 35 SEC (24-38) Sodium Level 137 mmol/L (136-145) Potassium Level 3.3 mmol/L (3.5-5.1) L Chloride Level 101 mmol/L (98-107) Carbon Dioxide Level 29 mmol/L (21-32) Anion Gap 7 (6-14) Blood Urea Nitrogen 13 mg/dL (8-26) Creatinine 0.7 mg/dL (0.7-1.3) Estimated GFR (Cockcroft-Gault) 119.4 BUN/Creatinine Ratio 19 (6-20) Glucose Level 97 mg/dL (70-99) Lactic Acid Level 1.3 mmol/L (0.4-2.0) Calcium Level 8.0 mg/dL (8.5-10.1) L Magnesium Level 1.8 mg/dL (1.8-2.4) Total Bilirubin 2.9 mg/dL (0.2-1.0) H Aspartate Amino Transferase (AST) 35 U/L (15-37) Alanine Aminotransferase (ALT) 23 U/L (16-63) Alkaline Phosphatase 241 U/L (46-116) H Ammonia 51 mcmol/L (11-34) H Troponin I Quantitative < 0.017 ng/mL (0.000-0.055) Total Protein 6.4 g/dL (6.4-8.2) Albumin 1.9 g/dL (3.4-5.0) L Albumin/Globulin Ratio 0.4 (1.0-1.7) L Ethyl Alcohol Level < 10 mg/dL (0-10) Urine Collection Type Unknown Urine Color [place] Urine Clarity Cloudy Urine pH 5.5 Urine Specific [place] 1.015 Urine Protein Negative mg/dL (NEG-TRACE) Urine Glucose (UA) Negative mg/dL (NEG) Urine Ketones (Stick) Negative mg/dL (NEG) Urine Blood Negative (NEG) Urine Nitrite Negative (NEG) Urine Bilirubin Small (NEG) Urine Urobilinogen Dipstick 1.0 mg/dL (0.2 mg/dL) Urine Leukocyte Esterase Moderate (NEG) Urine RBC 11-20 /HPF (0-2) Urine WBC 20-40 /HPF (0-4) Urine Squamous Epithelial Cells Few /LPF Urine Transitional Epithelial Cells Few /LPF Urine Amorphous Sediment Present /HPF Urine Bacteria 0 /HPF (0-FEW) Urine Hyaline Casts Many /HPF Urine Mucus Mod /LPF Urine Opiates Screen Neg (NEG) Urine Methadone Screen Neg (NEG) Urine Barbiturates Neg (NEG) Urine Phencyclidine Screen Neg (NEG) Urine Amphetamine/Methamphetamine Neg (NEG) Urine Benzodiazepines Screen Pos (NEG) Urine Cocaine Screen Neg (NEG) Urine Cannabinoids Screen Pos (NEG) Urine Ethyl Alcohol Neg (NEG) Stool Occult Blood Positive (NEG) Laboratory Tests 05/09/17 12:18 Laboratory Tests 05/09/17 12:18 EKG EKG EKG as interpreted by me as normal sinus rhythm, rate 75, no ST-T changes, normal intervals, no ectopy Radiology/Procedures Radiology/Procedures Chest xray as interpreted by me with no acute cardiopulmonary disease process Head CT without contrast IMPRESSION: No acute intracranial finding seen DICTATED and SIGNED BY: MARQUEZ RICHARDS MD DATE: 05/09/17 9588 Course & Med Decision Making Course & Med Decision Making Pertinent Labs and Imaging studies reviewed. (See chart for details) Laboratory evaluation reveals a lower hemoglobin prior; fecal occult is positive , however on exam have low concern for true positive. Laboratory evaluation is otherwise largely unremarkable. He was given 2 L of IV normal saline without significant improvement in systolic blood pressure, so Levophed was started. Suspect hypotension is related to medication versus less likely sepsis versus GI bleed, so antibiotics were not given at this time. Discussed case with Dr. Tavera, who will admit. Kina Disclaimer Dragon Disclaimer This electronic medical record was generated, in whole or in part, using a voice recognition dictation system. Critical Care Time Critical care time was 65 minutes exclusive of procedures. Departure Departure Impression: Primary Impression: Altered mental status Additional Impression: Hypotension Disposition: ADMITTED INPATIENT Condition: CRITICAL Referrals: VANI BOLTON MD (PCP) Problem Qualifiers Primary Impression: Altered mental status Altered mental status type: unspecified Qualified Codes: R41.82 - Altered mental status, unspecified Additional Impression: Hypotension Hypotension type: unspecified hypotension type Qualified Codes: I95.9 - Hypotension, unspecified Faiza CORREA MD May 09, 2017 13:22
[2017-05-09] MEDS ORDERED: NOREPINEPHRIN PREMIX 250 ML IV ONE (13:30)
[2017-05-09 13:35] LABS: NEG OBC FOB NEG; POS OBC FOB POS
[2017-05-09] MEDS ORDERED: ACETAMINOPHEN 325 MG TABLET. PO PRN (14:00)
[2017-05-09] MEDS ORDERED: ONDANSETRON PF 4 MG/2 ML VIAL. IV PRN (14:00)
--- NOTE | 2017-05-09 14:52 | RAD ---
Examination: Single frontal view of the abdomen History: History of NG tube placement. Comparison: 08/29/2013 Findings: The NG tube tip is identified just distal to the gastroesophageal junction in the stomach. The side-port of the NG tube is at the level of the gastroesophageal junction Bowel gas pattern appears unremarkable. Metallic coils project in the right midabdomen Impression: 1. The NG tube tip is in the stomach however the side-port of the NG tube is at the level of the gastroesophageal junction. Consider advancing the NG tube.
[2017-05-09] MEDS ORDERED: FURO40TA4 PO (15:03)
[2017-05-09] MEDS ORDERED: TIZA4TAB PO (15:07)
[2017-05-09] MEDS ORDERED: PREG150C PO (15:11)
[2017-05-09] MEDS ORDERED: hydrALAZINE 20 MG/ML VIAL. IVP PRN (16:00)
[2017-05-09] MEDS ORDERED: PNEUMOCOCCAL VAX SCREEN BY RX. MC ONE (18:00)
--- NOTE | 2017-05-09 19:07 | RAD ---
EXAM: Abdomen, single view. HISTORY: Nasogastric tube placement. COMPARISON: None. FINDINGS: A frontal view of the abdomen is obtained. There is a nasogastric tube within the proximal stomach. There are prominent air-filled loops of bowel within the upper abdomen. IMPRESSION: Nasogastric tube terminating within the proximal stomach. Electronically signed by: Niecy Rockwell MD (05/09/2017 7:04 PM)
[2017-05-09] MEDS: PREGABALIN 75 MG CAPSULE PO SCH (20:59)
[2017-05-09] MEDS: BACLOFEN 10 MG TABLET. PO SCH (20:59)
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
[2017-05-09] MEDS: GABAPENTIN 100 MG CAPSULE. PO SCH (21:00)
[2017-05-09] MEDS ORDERED: FUROSEMIDE 40 MG TABLET. PO SCH (21:00)
[2017-05-09] MEDS ORDERED: ACAMPROSATE CALCIUM PO SCH (21:00)
[2017-05-09] MEDS: LACTULOSE 20 GM/30 ML SOLUTION. PO SCH (21:00)
[2017-05-09] MEDS: TEMAZEPAM 15 MG CAPSULE PO PRN (21:00)
[2017-05-10] VITALS (12 sets, daily range): BP systolic 111–149; BP diastolic 68–87
[2017-05-10 05:20] LABS: BASO % 0 % (0-3); EOS % 1 % (0-3); HEMATOCRIT 31.4 % (39.0-53.0); HEMOGLOBIN 10.6 g/dL (13.0-17.5); LYMPH # 0.8 x10^3/uL (1.0-4.8); LYMPH % 12 % (24-48); MEAN CORPUSCULAR HEMOGLOBIN 33 pg (25-35); MEAN CORPUSCULAR HGB CONC 34 g/dL (31-37); MEAN CORPUSCULAR VOLUME 98 fL (79-100); MONO % 9 % (0-9); NEUT % 78 % (31-73); PLATELET COUNT 103 x10^3/uL (140-400); RED BLOOD COUNT 3.21 x10^6/uL (4.30-5.70); RED CELL DISTRIBUTION WIDTH 15.1 % (11.5-14.5); WHITE BLOOD COUNT 6.2 x10^3/uL (4.0-11.0)
[2017-05-10 05:26] LABS: INR 1.2 (0.8-1.1); PROTHROMBIN TIME PATIENT 14.8 SEC (11.7-14.0)
[2017-05-10 05:42] LABS: CALCIUM 8.3 mg/dL (8.5-10.1); CREATININE 0.5 mg/dL (0.7-1.3)
[2017-05-10 05:57] LABS: POTASSIUM 2.4 mmol/L (3.5-5.1)
[2017-05-10] MEDS ORDERED: POTASSIUM CHLORIDE 20 MEQ TABLET.ER. PO SCH (08:00)
[2017-05-10] MEDS ORDERED: LIDOCAINE 1% / SOD BICARB 8.4% 20 ML VIAL. IJ ONE ×2 (08:09→08:45)
--- NOTE | 2017-05-10 08:58 | PDOC ---
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 Post-Procedure Diagnosis Post-Procedure Diagnosis Same Procedure Performed Procedure Performed Sono guided Tx paracentesis, bedside in ICU Type of Anesthesia Type of Anesthesia Local Estimated Blood Loss EBL: Trace Specimens Specimans 9500 cc straw-clear ascites removed---sample to micro Condition of Patient Condition of Patient No change. Encephalopathic. No apparent complication. GIANFRANCO ALICEA MD May 10, 2017 08:58
[2017-05-10] MEDS ORDERED: ALBUMIN HUMAN 25% 200 ML IV ONE (09:00)
[2017-05-10] MEDS: LACTULOSE 20 GM/30 ML SOLUTION. PO SCH ×3 (09:00→20:28)
--- NOTE | 2017-05-10 09:07 | PDOC ---
PROGRESS NOTES Chief Complaint Chief Complaint cc: AMS A/P Hepatic encephalopathy: exacerbated with medications such as baclofen, and Lyrica. try lactulose Alcoholic cirrhosis, jaundice, ascites, encephalopathy: s/p paracentesis today. hold Lyrica, d/w pt about compilations such as worsening encephalopathy Severe hypokalemia: replaced Bacteremia: GNR, on cefepime follow cx, consult ID. Malnourished. : due to liver disease, prognosis poor/guarded. HTN Depression Vitals Vitals Vital Signs Date Time Temp Pulse Resp B/P (MAP) Pulse Ox O2 Delivery O2 Flow Rate FiO2 05/10/17 06:00 107 16 147/87 (107) 97 Room Air 05/10/17 01:00 98.6 98.6 Physical Exam General: Alert, Oriented X3, Other (malnourished, ) Heart: Normal S1, Other (TACHYCARDIA. ) Lungs: Clear, Other Abdomen: Normal bowel sounds, Other (Distended. ) Extremities: No clubbing Labs LABS Laboratory Tests Test 05/09/17 12:18 05/09/17 12:44 05/09/17 13:17 05/09/17 15:20 White Blood Count 6.0 x10^3/uL (4.0-11.0) Red Blood Count 2.70 x10^6/uL (4.30-5.70) Hemoglobin 8.9 g/dL (13.0-17.5) Hematocrit 26.3 % (39.0-53.0) Mean Corpuscular Volume 98 fL (79-100) Mean Corpuscular Hemoglobin 33 pg (25-35) Mean Corpuscular Hemoglobin Concent 34 g/dL (31-37) Red Cell Distribution Width 14.8 % (11.5-14.5) Platelet Count 85 x10^3/uL (140-400) Neutrophils (%) (Auto) 79 % (31-73) Lymphocytes (%) (Auto) 12 % (24-48) Monocytes (%) (Auto) 8 % (0-9) Eosinophils (%) (Auto) 0 % (0-3) Basophils (%) (Auto) 1 % (0-3) Neutrophils # (Auto) 4.8 x10^3uL (1.8-7.7) Lymphocytes # (Auto) 0.7 x10^3/uL (1.0-4.8) Monocytes # (Auto) 0.5 x10^3/uL (0.0-1.1) Eosinophils # (Auto) 0.0 x10^3/uL (0.0-0.7) Basophils # (Auto) 0.0 x10^3/uL (0.0-0.2) Prothrombin Time 15.9 SEC (11.7-14.0) Prothromb Time International Ratio 1.4 (0.8-1.1) Activated Partial Thromboplast Time 35 SEC (24-38) Sodium Level 137 mmol/L (136-145) Potassium Level 3.3 mmol/L (3.5-5.1) Chloride Level 101 mmol/L (98-107) Carbon Dioxide Level 29 mmol/L (21-32) Anion Gap 7 (6-14) Blood Urea Nitrogen 13 mg/dL (8-26) Creatinine 0.7 mg/dL (0.7-1.3) Estimated GFR (Cockcroft-Gault) 119.4 BUN/Creatinine Ratio 19 (6-20) Glucose Level 97 mg/dL (70-99) Lactic Acid Level 1.3 mmol/L (0.4-2.0) Calcium Level 8.0 mg/dL (8.5-10.1) Magnesium Level 1.8 mg/dL (1.8-2.4) Total Bilirubin 2.9 mg/dL (0.2-1.0) Aspartate Amino Transf (AST/SGOT) 35 U/L (15-37) Alanine Aminotransferase (ALT/SGPT) 23 U/L (16-63) Alkaline Phosphatase 241 U/L (46-116) Ammonia 51 mcmol/L (11-34) Troponin I Quantitative < 0.017 ng/mL (0.000-0.055) Total Protein 6.4 g/dL (6.4-8.2) Albumin 1.9 g/dL (3.4-5.0) Albumin/Globulin Ratio 0.4 (1.0-1.7) Ethyl Alcohol Level < 10 mg/dL (0-10) Urine Collection Type Unknown Urine Color [place] Urine Clarity Cloudy Urine pH 5.5 Urine Specific [place] 1.015 Urine Protein Negative mg/dL (NEG-TRACE) Urine Glucose (UA) Negative mg/dL (NEG) Urine Ketones (Stick) Negative mg/dL (NEG) Urine Blood Negative (NEG) Urine Nitrite Negative (NEG) Urine Bilirubin Small (NEG) Urine Urobilinogen Dipstick 1.0 mg/dL (0.2 mg/dL) Urine Leukocyte Esterase Moderate (NEG) Urine RBC 11-20 /HPF (0-2) Urine WBC 20-40 /HPF (0-4) Urine Squamous Epithelial Cells Few /LPF Urine Transitional Epithelial Cells Few /LPF Urine Amorphous Sediment Present /HPF Urine Bacteria 0 /HPF (0-FEW) Urine Hyaline Casts Many /HPF Urine Mucus Mod /LPF Urine Opiates Screen Neg (NEG) Urine Methadone Screen Neg (NEG) Urine Barbiturates Neg (NEG) Urine Phencyclidine Screen Neg (NEG) Urine Amphetamine/Methamphetamine Neg (NEG) Urine Benzodiazepines Screen Pos (NEG) Urine Cocaine Screen Neg (NEG) Urine Cannabinoids Screen Pos (NEG) Urine Ethyl Alcohol Neg (NEG) Stool Occult Blood Positive (NEG) Glucose (Fingerstick) 108 mg/dL (70-99) Test 05/10/17 04:20 White Blood Count 6.2 x10^3/uL (4.0-11.0) Red Blood Count 3.21 x10^6/uL (4.30-5.70) Hemoglobin 10.6 g/dL (13.0-17.5) Hematocrit 31.4 % (39.0-53.0) Mean Corpuscular Volume 98 fL (79-100) Mean Corpuscular Hemoglobin 33 pg (25-35) Mean Corpuscular Hemoglobin Concent 34 g/dL (31-37) Red Cell Distribution Width 15.1 % (11.5-14.5) Platelet Count 103 x10^3/uL (140-400) Neutrophils (%) (Auto) 78 % (31-73) Lymphocytes (%) (Auto) 12 % (24-48) Monocytes (%) (Auto) 9 % (0-9) Eosinophils (%) (Auto) 1 % (0-3) Basophils (%) (Auto) 0 % (0-3) Neutrophils # (Auto) 4.8 x10^3uL (1.8-7.7) Lymphocytes # (Auto) 0.8 x10^3/uL (1.0-4.8) Monocytes # (Auto) 0.5 x10^3/uL (0.0-1.1) Eosinophils # (Auto) 0.0 x10^3/uL (0.0-0.7) Basophils # (Auto) 0.0 x10^3/uL (0.0-0.2) Prothrombin Time 14.8 SEC (11.7-14.0) Prothromb Time International Ratio 1.2 (0.8-1.1) Activated Partial Thromboplast Time 37 SEC (24-38) Sodium Level 138 mmol/L (136-145) Potassium Level 2.4 mmol/L (3.5-5.1) Chloride Level 101 mmol/L (98-107) Carbon Dioxide Level 25 mmol/L (21-32) Anion Gap 12 (6-14) Blood Urea Nitrogen 11 mg/dL (8-26) Creatinine 0.5 mg/dL (0.7-1.3) Estimated GFR (Cockcroft-Gault) 176.0 Glucose Level 121 mg/dL (70-99) Calcium Level 8.3 mg/dL (8.5-10.1) Assessment and Plan Assessmemt and Plan Problems Medical Problems: (1) Altered mental status Status: Acute (2) Hypotension Status: Acute Problems: Comment Review of Relevant I have reviewed the following items reyna (where applicable) has been applied. Labs Laboratory Tests Test 05/09/17 12:18 05/09/17 12:44 05/09/17 13:17 05/09/17 15:20 White Blood Count 6.0 x10^3/uL (4.0-11.0) Red Blood Count 2.70 x10^6/uL (4.30-5.70) Hemoglobin 8.9 g/dL (13.0-17.5) Hematocrit 26.3 % (39.0-53.0) Mean Corpuscular Volume 98 fL (79-100) Mean Corpuscular Hemoglobin 33 pg (25-35) Mean Corpuscular Hemoglobin Concent 34 g/dL (31-37) Red Cell Distribution Width 14.8 % (11.5-14.5) Platelet Count 85 x10^3/uL (140-400) Neutrophils (%) (Auto) 79 % (31-73) Lymphocytes (%) (Auto) 12 % (24-48) Monocytes (%) (Auto) 8 % (0-9) Eosinophils (%) (Auto) 0 % (0-3) Basophils (%) (Auto) 1 % (0-3) Neutrophils # (Auto) 4.8 x10^3uL (1.8-7.7) Lymphocytes # (Auto) 0.7 x10^3/uL (1.0-4.8) Monocytes # (Auto) 0.5 x10^3/uL (0.0-1.1) Eosinophils # (Auto) 0.0 x10^3/uL (0.0-0.7) Basophils # (Auto) 0.0 x10^3/uL (0.0-0.2) Prothrombin Time 15.9 SEC (11.7-14.0) Prothromb Time International Ratio 1.4 (0.8-1.1) Activated Partial Thromboplast Time 35 SEC (24-38) Sodium Level 137 mmol/L (136-145) Potassium Level 3.3 mmol/L (3.5-5.1) Chloride Level 101 mmol/L (98-107) Carbon Dioxide Level 29 mmol/L (21-32) Anion Gap 7 (6-14) Blood Urea Nitrogen 13 mg/dL (8-26) Creatinine 0.7 mg/dL (0.7-1.3) Estimated GFR (Cockcroft-Gault) 119.4 BUN/Creatinine Ratio 19 (6-20) Glucose Level 97 mg/dL (70-99) Lactic Acid Level 1.3 mmol/L (0.4-2.0) Calcium Level 8.0 mg/dL (8.5-10.1) Magnesium Level 1.8 mg/dL (1.8-2.4) Total Bilirubin 2.9 mg/dL (0.2-1.0) Aspartate Amino Transf (AST/SGOT) 35 U/L (15-37) Alanine Aminotransferase (ALT/SGPT) 23 U/L (16-63) Alkaline Phosphatase 241 U/L (46-116) Ammonia 51 mcmol/L (11-34) Troponin I Quantitative < 0.017 ng/mL (0.000-0.055) Total Protein 6.4 g/dL (6.4-8.2) Albumin 1.9 g/dL (3.4-5.0) Albumin/Globulin Ratio 0.4 (1.0-1.7) Ethyl Alcohol Level < 10 mg/dL (0-10) Urine Collection Type Unknown Urine Color [place] Urine Clarity Cloudy Urine pH 5.5 Urine Specific [place] 1.015 Urine Protein Negative mg/dL (NEG-TRACE) Urine Glucose (UA) Negative mg/dL (NEG) Urine Ketones (Stick) Negative mg/dL (NEG) Urine Blood Negative (NEG) Urine Nitrite Negative (NEG) Urine Bilirubin Small (NEG) Urine Urobilinogen Dipstick 1.0 mg/dL (0.2 mg/dL) Urine Leukocyte Esterase Moderate (NEG) Urine RBC 11-20 /HPF (0-2) Urine WBC 20-40 /HPF (0-4) Urine Squamous Epithelial Cells Few /LPF Urine Transitional Epithelial Cells Few /LPF Urine Amorphous Sediment Present /HPF Urine Bacteria 0 /HPF (0-FEW) Urine Hyaline Casts Many /HPF Urine Mucus Mod /LPF Urine Opiates Screen Neg (NEG) Urine Methadone Screen Neg (NEG) Urine Barbiturates Neg (NEG) Urine Phencyclidine Screen Neg (NEG) Urine Amphetamine/Methamphetamine Neg (NEG) Urine Benzodiazepines Screen Pos (NEG) Urine Cocaine Screen Neg (NEG) Urine Cannabinoids Screen Pos (NEG) Urine Ethyl Alcohol Neg (NEG) Stool Occult Blood Positive (NEG) Glucose (Fingerstick) 108 mg/dL (70-99) Test 05/10/17 04:20 White Blood Count 6.2 x10^3/uL (4.0-11.0) Red Blood Count 3.21 x10^6/uL (4.30-5.70) Hemoglobin 10.6 g/dL (13.0-17.5) Hematocrit 31.4 % (39.0-53.0) Mean Corpuscular Volume 98 fL (79-100) Mean Corpuscular Hemoglobin 33 pg (25-35) Mean Corpuscular Hemoglobin Concent 34 g/dL (31-37) Red Cell Distribution Width 15.1 % (11.5-14.5) Platelet Count 103 x10^3/uL (140-400) Neutrophils (%) (Auto) 78 % (31-73) Lymphocytes (%) (Auto) 12 % (24-48) Monocytes (%) (Auto) 9 % (0-9) Eosinophils (%) (Auto) 1 % (0-3) Basophils (%) (Auto) 0 % (0-3) Neutrophils # (Auto) 4.8 x10^3uL (1.8-7.7) Lymphocytes # (Auto) 0.8 x10^3/uL (1.0-4.8) Monocytes # (Auto) 0.5 x10^3/uL (0.0-1.1) Eosinophils # (Auto) 0.0 x10^3/uL (0.0-0.7) Basophils # (Auto) 0.0 x10^3/uL (0.0-0.2) Prothrombin Time 14.8 SEC (11.7-14.0) Prothromb Time International Ratio 1.2 (0.8-1.1) Activated Partial Thromboplast Time 37 SEC (24-38) Sodium Level 138 mmol/L (136-145) Potassium Level 2.4 mmol/L (3.5-5.1) Chloride Level 101 mmol/L (98-107) Carbon Dioxide Level 25 mmol/L (21-32) Anion Gap 12 (6-14) Blood Urea Nitrogen 11 mg/dL (8-26) Creatinine 0.5 mg/dL (0.7-1.3) Estimated GFR (Cockcroft-Gault) 176.0 Glucose Level 121 mg/dL (70-99) Calcium Level 8.3 mg/dL (8.5-10.1) Laboratory Tests Test 05/09/17 12:18 05/09/17 12:44 05/09/17 13:17 05/09/17 15:20 White Blood Count 6.0 x10^3/uL (4.0-11.0) Red Blood Count 2.70 x10^6/uL (4.30-5.70) Hemoglobin 8.9 g/dL (13.0-17.5) Hematocrit 26.3 % (39.0-53.0) Mean Corpuscular Volume 98 fL (79-100) Mean Corpuscular Hemoglobin 33 pg (25-35) Mean Corpuscular Hemoglobin Concent 34 g/dL (31-37) Red Cell Distribution Width 14.8 % (11.5-14.5) Platelet Count 85 x10^3/uL (140-400) Neutrophils (%) (Auto) 79 % (31-73) Lymphocytes (%) (Auto) 12 % (24-48) Monocytes (%) (Auto) 8 % (0-9) Eosinophils (%) (Auto) 0 % (0-3) Basophils (%) (Auto) 1 % (0-3) Neutrophils # (Auto) 4.8 x10^3uL (1.8-7.7) Lymphocytes # (Auto) 0.7 x10^3/uL (1.0-4.8) Monocytes # (Auto) 0.5 x10^3/uL (0.0-1.1) Eosinophils # (Auto) 0.0 x10^3/uL (0.0-0.7) Basophils # (Auto) 0.0 x10^3/uL (0.0-0.2) Prothrombin Time 15.9 SEC (11.7-14.0) Prothromb Time International Ratio 1.4 (0.8-1.1) Activated Partial Thromboplast Time 35 SEC (24-38) Sodium Level 137 mmol/L (136-145) Potassium Level 3.3 mmol/L (3.5-5.1) Chloride Level 101 mmol/L (98-107) Carbon Dioxide Level 29 mmol/L (21-32) Anion Gap 7 (6-14) Blood Urea Nitrogen 13 mg/dL (8-26) Creatinine 0.7 mg/dL (0.7-1.3) Estimated GFR (Cockcroft-Gault) 119.4 BUN/Creatinine Ratio 19 (6-20) Glucose Level 97 mg/dL (70-99) Lactic Acid Level 1.3 mmol/L (0.4-2.0) Calcium Level 8.0 mg/dL (8.5-10.1) Magnesium Level 1.8 mg/dL (1.8-2.4) Total Bilirubin 2.9 mg/dL (0.2-1.0) Aspartate Amino Transf (AST/SGOT) 35 U/L (15-37) Alanine Aminotransferase (ALT/SGPT) 23 U/L (16-63) Alkaline Phosphatase 241 U/L (46-116) Ammonia 51 mcmol/L (11-34) Troponin I Quantitative < 0.017 ng/mL (0.000-0.055) Total Protein 6.4 g/dL (6.4-8.2) Albumin 1.9 g/dL (3.4-5.0) Albumin/Globulin Ratio 0.4 (1.0-1.7) Ethyl Alcohol Level < 10 mg/dL (0-10) Urine Collection Type Unknown Urine Color [place] Urine Clarity Cloudy Urine pH 5.5 Urine Specific [place] 1.015 Urine Protein Negative mg/dL (NEG-TRACE) Urine Glucose (UA) Negative mg/dL (NEG) Urine Ketones (Stick) Negative mg/dL (NEG) Urine Blood Negative (NEG) Urine Nitrite Negative (NEG) Urine Bilirubin Small (NEG) Urine Urobilinogen Dipstick 1.0 mg/dL (0.2 mg/dL) Urine Leukocyte Esterase Moderate (NEG) Urine RBC 11-20 /HPF (0-2) Urine WBC 20-40 /HPF (0-4) Urine Squamous Epithelial Cells Few /LPF Urine Transitional Epithelial Cells Few /LPF Urine Amorphous Sediment Present /HPF Urine Bacteria 0 /HPF (0-FEW) Urine Hyaline Casts Many /HPF Urine Mucus Mod /LPF Urine Opiates Screen Neg (NEG) Urine Methadone Screen Neg (NEG) Urine Barbiturates Neg (NEG) Urine Phencyclidine Screen Neg (NEG) Urine Amphetamine/Methamphetamine Neg (NEG) Urine Benzodiazepines Screen Pos (NEG) Urine Cocaine Screen Neg (NEG) Urine Cannabinoids Screen Pos (NEG) Urine Ethyl Alcohol Neg (NEG) Stool Occult Blood Positive (NEG) Glucose (Fingerstick) 108 mg/dL (70-99) Test 05/10/17 04:20 White Blood Count 6.2 x10^3/uL (4.0-11.0) Red Blood Count 3.21 x10^6/uL (4.30-5.70) Hemoglobin 10.6 g/dL (13.0-17.5) Hematocrit 31.4 % (39.0-53.0) Mean Corpuscular Volume 98 fL (79-100) Mean Corpuscular Hemoglobin 33 pg (25-35) Mean Corpuscular Hemoglobin Concent 34 g/dL (31-37) Red Cell Distribution Width 15.1 % (11.5-14.5) Platelet Count 103 x10^3/uL (140-400) Neutrophils (%) (Auto) 78 % (31-73) Lymphocytes (%) (Auto) 12 % (24-48) Monocytes (%) (Auto) 9 % (0-9) Eosinophils (%) (Auto) 1 % (0-3) Basophils (%) (Auto) 0 % (0-3) Neutrophils # (Auto) 4.8 x10^3uL (1.8-7.7) Lymphocytes # (Auto) 0.8 x10^3/uL (1.0-4.8) Monocytes # (Auto) 0.5 x10^3/uL (0.0-1.1) Eosinophils # (Auto) 0.0 x10^3/uL (0.0-0.7) Basophils # (Auto) 0.0 x10^3/uL (0.0-0.2) Prothrombin Time 14.8 SEC (11.7-14.0) Prothromb Time International Ratio 1.2 (0.8-1.1) Activated Partial Thromboplast Time 37 SEC (24-38) Sodium Level 138 mmol/L (136-145) Potassium Level 2.4 mmol/L (3.5-5.1) Chloride Level 101 mmol/L (98-107) Carbon Dioxide Level 25 mmol/L (21-32) Anion Gap 12 (6-14) Blood Urea Nitrogen 11 mg/dL (8-26) Creatinine 0.5 mg/dL (0.7-1.3) Estimated GFR (Cockcroft-Gault) 176.0 Glucose Level 121 mg/dL (70-99) Calcium Level 8.3 mg/dL (8.5-10.1) Microbiology 05/09/17 Blood Culture - Final, Complete Medications Current Medications Sodium Chloride 1,000 ml @ 1,000 mls/hr 1X ONCE IV Last administered on 12:27; Start 05/09/17 at 12:15; Stop 05/09/17 at 13:14; Status DC Naloxone HCl 2 mg/ Dextrose 502 ml @ 0 mls/hr 1X ONCE IV Last administered on 05/09/17 12:46; Start 05/09/17 at 12:45; Stop 05/09/17 at 13:12; Status DC Naloxone HCl (Narcan) 2 mg 1X ONCE IV Last administered on 05/09/17 12:35; Start 05/09/17 at 12:45; Stop 05/09/17 at 12:46; Status DC Sodium Chloride 1,000 ml @ 1,000 mls/hr 1X ONCE IV Last administered on 12:52; Start 05/09/17 at 13:00; Stop 05/09/17 at 13:59; Status DC Norepinephrine Bitartrate 250 ml @ 0 mls/hr 1X ONCE IV Last administered on 13:31; Start 05/09/17 at 13:30; Stop 05/09/17 at 13:31; Status DC Ondansetron HCl (Zofran) 4 mg PRN Q8HRS PRN IV NAUSEA/VOMITING; Start 05/09/17 at 14:00; Stop 05/10/17 at 13:59 Acetaminophen (Tylenol) 650 mg PRN Q4HRS PRN PO FEVER; Start 05/09/17 at 14:00 ; Stop 05/10/17 at 13:59 Amlodipine Besylate (Norvasc) 10 mg DAILY PO ; Start 05/10/17 at 09:00 Baclofen (Lioresal) 20 mg TID PO Last administered on 05/09/17 20:59; Start at 21:00 Furosemide (Lasix) 60 mg TID PO Last administered on 05/09/17 20:59; Start at 21:00; Stop 05/10/17 at 06:08; Status DC Gabapentin (Neurontin) 100 mg TID PO Last administered on 05/09/17 21:00; Start 05/09/17 at 21:00 Pantoprazole Sodium (Protonix) 40 mg DAILYAC PO ; Start 05/10/17 at 07:30 Temazepam (Restoril) 30 mg PRN QHS PRN PO INSOMNIA Last administered on 21:00; Start 05/09/17 at 16:00 Non-Formulary Medication 2 tab TID PO ; Start 05/09/17 at 21:00; Status UNV Citalopram Hydrobromide (CeleXA) 40 mg DAILY PO ; Start 05/10/17 at 09:00 Lactulose 20 gm TID PO Last administered on 05/09/17 21:00; Start 05/09/17 at 21:00 Potassium Chloride (Klor-Con) 40 meq DAILYWBKFT PO ; Start 05/10/17 at 08:00; Stop 05/10/17 at 08:00; Status DC Pregabalin (Lyrica) 150 mg TID PO Last administered on 05/09/17 20:59; Start 05/09/17 at 21:00 Hydralazine HCl (Apresoline) 10 mg PRN Q4HRS PRN IVP ELEVATED BP, SEE COMMENTS ; Start 05/09/17 at 16:00 Potassium Chloride/Sodium Chloride 1,000 ml @ 50 mls/hr Q20H IV Last administered on 05/09/17 18:19; Start 05/09/17 at 16:30 Pneumococcal Polyvalent Vaccine (Do NOT chart on this placeholder) 1 each 1X ONCE MC ; Start 05/09/17 at 18:00; Stop 05/09/17 at 18:01; Status UNV Furosemide (Lasix) 60 mg DAILY PO ; Start 05/10/17 at 09:00 Potassium Chloride (Klor-Con) 40 meq TID PO ; Start 05/10/17 at 09:00 Lidocaine/Sodium Bicarbonate (Buffered Lidocaine 1%) 20 ml STK-MED ONCE IJ ; Start 05/10/17 at 08:09; Stop 05/10/17 at 08:10; Status DC Lidocaine/Sodium Bicarbonate (Buffered Lidocaine 1%) 10 ml 1X ONCE IJ Last administered on 05/10/17 08:50; Start 05/10/17 at 08:45; Stop 05/10/17 at 08:46 ; Status DC Albumin Human 200 ml @ 200 mls/hr 1X ONCE IV ; Start 05/10/17 at 09:00; Stop 05/10/17 at 09:59 Active Scripts Active K-Tab ER (Potassium Chloride) 20 Meq Tablet.er 40 Meq PO DAILY 30 Days Reported Lyrica (Pregabalin) 150 Mg Capsule 150 Mg PO TID 30 Days Tizanidine Hcl 4 Mg Tablet 2 Tab PO Q8HRS Furosemide 40 Mg Tablet 1.5 Tab PO TID Vitamin D2 (Ergocalciferol (Vitamin D2)) 50,000 Unit Capsule 1 Cap PO 3X/WEEK Citalopram Hbr (Citalopram Hydrobromide) 40 Mg Tablet 1 Tab PO DAILY Fluoxetine Hcl 20 Mg Tablet 30 Mg PO DAILY Gabapentin 100 Mg Capsule 100 Mg PO TID Acamprosate Calcium 333 Mg Tablet.dr 2 Tab PO TID 90 Days Baclofen 10 Mg Tablet 2 Tab PO TID Zolpidem Tartrate 10 Mg Tablet 1 Tab PO QHS Temazepam 30 Mg Capsule 30 Mg PO HS PRN Lactulose 20 Gm/30 Ml Solution 20 Gm PO TID Cyclobenzaprine Hcl 10 Mg Tablet 1 Tab PO TID PRN Protonix (Pantoprazole Sodium) 40 Mg Tablet.dr 40 Mg PO DAILY Amlodipine Besylate 10 Mg Tablet 10 Mg PO DAILY Gave this morning Take tomorrow morning Vitals/I & O Vital Sign - Last 24 Hours 05/09/17 05/09/17 05/09/17 05/09/17 12:09 12:52 12:59 13:32 Temp 97.6 97.6 Pulse 77 73 76 77 Resp 16 14 14 14 B/P (MAP) 87/56 (66) 78/49 (59) 99/66 (77) 76/51 (59) Pulse Ox 96 100 98 99 O2 Delivery Room Air Room Air 05/09/17 05/09/17 05/09/17 05/09/17 14:15 14:15 14:15 14:30 Temp 97.5 97.9 97.5 97.9 Pulse 96 96 100 Resp 12 12 13 B/P (MAP) 135/81 (99) 135/81 (99) 116/72 (87) Pulse Ox 96 94 O2 Delivery Room Air Room Air Room Air Room Air 05/09/17 05/09/17 05/09/17 05/09/17 14:45 15:00 15:15 15:30 Pulse 98 92 100 94 Resp 10 21 10 B/P (MAP) 116/72 (87) 116/77 (90) 171/81 (111) 118/77 (91) Pulse Ox 99 96 97 97 O2 Delivery Room Air Room Air Room Air Room Air 05/09/17 05/09/17 05/09/17 05/09/17 15:45 16:00 16:00 16:30 Pulse 100 98 96 Resp 19 19 B/P (MAP) 116/80 (92) 121/83 (96) 118/83 (95) Pulse Ox 97 97 99 O2 Delivery Room Air Room Air Room Air Room Air 05/09/17 05/09/17 05/09/17 05/09/17 17:00 17:30 18:00 18:30 Pulse 100 104 102 100 Resp 15 12 14 14 B/P (MAP) 133/85 (101) 115/78 (90) 127/80 (96) 135/83 (100) Pulse Ox 99 99 100 99 O2 Delivery Room Air Room Air Room Air Room Air 05/09/17 05/09/17 05/09/17 05/09/17 19:57 20:00 21:00 22:00 Temp 98.6 98.6 Pulse 96 114 108 Resp 18 18 18 B/P (MAP) 131/75 (93) 131/79 (96) 121/82 (95) Pulse Ox 99 100 100 O2 Delivery Room Air Room Air Room Air Room Air 05/09/17 05/09/17 05/10/17 05/10/17 23:00 23:59 00:00 01:00 Temp 98.4 98.6 98.4 98.6 Pulse 104 108 104 Resp 20 18 18 B/P (MAP) 115/74 (88) 131/86 (101) 140/83 (102) Pulse Ox 99 98 98 O2 Delivery Room Air Room Air Room Air Room Air 05/10/17 05/10/17 05/10/17 05/10/17 02:00 03:00 04:00 04:00 Pulse 102 106 106 Resp 18 20 18 B/P (MAP) 140/80 (100) 122/78 (93) 137/84 (101) Pulse Ox 99 98 98 O2 Delivery Room Air Room Air Room Air Room Air 05/10/17 05/10/17 05:00 06:00 Pulse 105 107 Resp 18 16 B/P (MAP) 142/87 (105) 147/87 (107) Pulse Ox 98 97 O2 Delivery Room Air Room Air Intake and Output 05/09/17 05/09/17 05/10/17 15:00 23:00 07:00 Intake Total 809.49 ml 350 ml Output Total 1950 ml 925 ml Balance -1140.51 ml -575 ml LEYDA BURRELL MD May 10, 2017 09:07
[2017-05-10] MEDS: CITALOPRAM 20 MG TABLET. PO SCH (09:28)
[2017-05-10] MEDS: POTASSIUM CHLORIDE 20 MEQ TABLET.ER. PO SCH ×3 (09:28→20:30)
[2017-05-10] MEDS: GABAPENTIN 100 MG CAPSULE. PO SCH ×3 (09:29→20:30)
[2017-05-10] MEDS: FUROSEMIDE 40 MG TABLET. PO SCH (09:29)
[2017-05-10] MEDS: BACLOFEN 10 MG TABLET. PO SCH ×3 (09:29→20:29)
[2017-05-10] MEDS: PREGABALIN 75 MG CAPSULE PO SCH (09:29)
[2017-05-10] MEDS: PANTOPRAZOLE 40 MG TABLET.DR. PO SCH (09:30)
[2017-05-10] MEDS: amLODIPine BESYLATE 10 MG TABLET PO SCH (09:30)
--- NOTE | 2017-05-10 11:07 | PDOC ---
Infectious Disease Note Vital Sign Vital Signs Vital Signs Date Time Temp Pulse Resp B/P (MAP) Pulse Ox O2 Delivery O2 Flow Rate FiO2 05/10/17 09:30 107 147/87 05/10/17 08:00 Room Air 05/10/17 06:00 16 97 05/10/17 01:00 98.6 98.6 Labs Lab Laboratory Tests Test 05/09/17 12:18 05/09/17 12:44 05/09/17 13:17 05/09/17 15:20 White Blood Count 6.0 x10^3/uL (4.0-11.0) Red Blood Count 2.70 x10^6/uL (4.30-5.70) Hemoglobin 8.9 g/dL (13.0-17.5) Hematocrit 26.3 % (39.0-53.0) Mean Corpuscular Volume 98 fL (79-100) Mean Corpuscular Hemoglobin 33 pg (25-35) Mean Corpuscular Hemoglobin Concent 34 g/dL (31-37) Red Cell Distribution Width 14.8 % (11.5-14.5) Platelet Count 85 x10^3/uL (140-400) Neutrophils (%) (Auto) 79 % (31-73) Lymphocytes (%) (Auto) 12 % (24-48) Monocytes (%) (Auto) 8 % (0-9) Eosinophils (%) (Auto) 0 % (0-3) Basophils (%) (Auto) 1 % (0-3) Neutrophils # (Auto) 4.8 x10^3uL (1.8-7.7) Lymphocytes # (Auto) 0.7 x10^3/uL (1.0-4.8) Monocytes # (Auto) 0.5 x10^3/uL (0.0-1.1) Eosinophils # (Auto) 0.0 x10^3/uL (0.0-0.7) Basophils # (Auto) 0.0 x10^3/uL (0.0-0.2) Prothrombin Time 15.9 SEC (11.7-14.0) Prothromb Time International Ratio 1.4 (0.8-1.1) Activated Partial Thromboplast Time 35 SEC (24-38) Sodium Level 137 mmol/L (136-145) Potassium Level 3.3 mmol/L (3.5-5.1) Chloride Level 101 mmol/L (98-107) Carbon Dioxide Level 29 mmol/L (21-32) Anion Gap 7 (6-14) Blood Urea Nitrogen 13 mg/dL (8-26) Creatinine 0.7 mg/dL (0.7-1.3) Estimated GFR (Cockcroft-Gault) 119.4 BUN/Creatinine Ratio 19 (6-20) Glucose Level 97 mg/dL (70-99) Lactic Acid Level 1.3 mmol/L (0.4-2.0) Calcium Level 8.0 mg/dL (8.5-10.1) Magnesium Level 1.8 mg/dL (1.8-2.4) Total Bilirubin 2.9 mg/dL (0.2-1.0) Aspartate Amino Transf (AST/SGOT) 35 U/L (15-37) Alanine Aminotransferase (ALT/SGPT) 23 U/L (16-63) Alkaline Phosphatase 241 U/L (46-116) Ammonia 51 mcmol/L (11-34) Troponin I Quantitative < 0.017 ng/mL (0.000-0.055) Total Protein 6.4 g/dL (6.4-8.2) Albumin 1.9 g/dL (3.4-5.0) Albumin/Globulin Ratio 0.4 (1.0-1.7) Ethyl Alcohol Level < 10 mg/dL (0-10) Urine Collection Type Unknown Urine Color [place] Urine Clarity Cloudy Urine pH 5.5 Urine Specific [place] 1.015 Urine Protein Negative mg/dL (NEG-TRACE) Urine Glucose (UA) Negative mg/dL (NEG) Urine Ketones (Stick) Negative mg/dL (NEG) Urine Blood Negative (NEG) Urine Nitrite Negative (NEG) Urine Bilirubin Small (NEG) Urine Urobilinogen Dipstick 1.0 mg/dL (0.2 mg/dL) Urine Leukocyte Esterase Moderate (NEG) Urine RBC 11-20 /HPF (0-2) Urine WBC 20-40 /HPF (0-4) Urine Squamous Epithelial Cells Few /LPF Urine Transitional Epithelial Cells Few /LPF Urine Amorphous Sediment Present /HPF Urine Bacteria 0 /HPF (0-FEW) Urine Hyaline Casts Many /HPF Urine Mucus Mod /LPF Urine Opiates Screen Neg (NEG) Urine Methadone Screen Neg (NEG) Urine Barbiturates Neg (NEG) Urine Phencyclidine Screen Neg (NEG) Urine Amphetamine/Methamphetamine Neg (NEG) Urine Benzodiazepines Screen Pos (NEG) Urine Cocaine Screen Neg (NEG) Urine Cannabinoids Screen Pos (NEG) Urine Ethyl Alcohol Neg (NEG) Stool Occult Blood Positive (NEG) Glucose (Fingerstick) 108 mg/dL (70-99) Test 05/10/17 04:20 White Blood Count 6.2 x10^3/uL (4.0-11.0) Red Blood Count 3.21 x10^6/uL (4.30-5.70) Hemoglobin 10.6 g/dL (13.0-17.5) Hematocrit 31.4 % (39.0-53.0) Mean Corpuscular Volume 98 fL (79-100) Mean Corpuscular Hemoglobin 33 pg (25-35) Mean Corpuscular Hemoglobin Concent 34 g/dL (31-37) Red Cell Distribution Width 15.1 % (11.5-14.5) Platelet Count 103 x10^3/uL (140-400) Neutrophils (%) (Auto) 78 % (31-73) Lymphocytes (%) (Auto) 12 % (24-48) Monocytes (%) (Auto) 9 % (0-9) Eosinophils (%) (Auto) 1 % (0-3) Basophils (%) (Auto) 0 % (0-3) Neutrophils # (Auto) 4.8 x10^3uL (1.8-7.7) Lymphocytes # (Auto) 0.8 x10^3/uL (1.0-4.8) Monocytes # (Auto) 0.5 x10^3/uL (0.0-1.1) Eosinophils # (Auto) 0.0 x10^3/uL (0.0-0.7) Basophils # (Auto) 0.0 x10^3/uL (0.0-0.2) Prothrombin Time 14.8 SEC (11.7-14.0) Prothromb Time International Ratio 1.2 (0.8-1.1) Activated Partial Thromboplast Time 37 SEC (24-38) Sodium Level 138 mmol/L (136-145) Potassium Level 2.4 mmol/L (3.5-5.1) Chloride Level 101 mmol/L (98-107) Carbon Dioxide Level 25 mmol/L (21-32) Anion Gap 12 (6-14) Blood Urea Nitrogen 11 mg/dL (8-26) Creatinine 0.5 mg/dL (0.7-1.3) Estimated GFR (Cockcroft-Gault) 176.0 Glucose Level 121 mg/dL (70-99) Calcium Level 8.3 mg/dL (8.5-10.1) Objective Assessment Sepsis G neg noah bacteremia Cirrhosis of liver Syncope/hypotension ETOH liver disease Plan Plan of Care cefepime and flagyl check cultures may need paracentesis BERNICE FENG MD May 10, 2017 11:07
[2017-05-10] MEDS: CEFEPIME HCL 1 GM in IV NORMAL SALINE 50ML 50 ML IV SCH ×2 (11:47→20:27)
--- NOTE | 2017-05-10 16:55 | RAD ---
Ultrasound-guided therapeutic paracentesis bedside in ICU Indication: 51-year-old male ICU patient with polysubstance abuse, alcohol sclerosis, and recurrent/refractory symptomatic large volume ascites. Anesthesia: Local only Procedure: Informed consent was obtained from the patient. This procedure was performed bedside in the intensive care unit. Preliminary ultrasound examination confirmed the presence of a large volume of abdominal/pelvic ascites. A right lateral abdominal peritoneal fluid collection, suitable for sono guided paracentesis, was selected, was marked, and was documented with a single hard copy ultrasound image. That area was then prepped and draped in the usual sterile fashion. Using aseptic technique, local anesthesia, and direct sterile ultrasound guidance, a 21-gauge micropuncture needle was successfully introduced into the right lateral peritoneal fluid collection. The 21-gauge needle was exchanged over a microguidewire for a micropuncture sheath, which was, in turn, removed over a 0.035 inch guidewire. Over the guidewire, the percutaneous tract was dilated and an 8 La[place] drainage catheter was easily introduced. Approximately 9500 cc of straw-clear ascites was removed, a sample of which was submitted to microbiology for routine culture and sensitivity. The drainage catheter was then removed and a sterile dressing was applied. Patient tolerated the procedure well without apparent complication. Infusion of 50 g 25% albumin was initiated during the paracentesis procedure. Impression: Successful, uneventful ultrasound-guided therapeutic paracentesis, performed bedside in the intensive care unit, as described.
[2017-05-10] MEDS: TEMAZEPAM 15 MG CAPSULE PO PRN (20:30)
[2017-05-10] MEDS: LIDOCAINE (700MG/PATCH) PATCH. TD SCH (23:34)
--- NOTE | 2017-05-11 04:09 | CONS ---
DATE OF CONSULTATION: 05/10/2017 REQUESTING PHYSICIAN: Dr. Tavera. REASON FOR CONSULTATION: Gram-negative noah bacteremia. HISTORY OF PRESENT ILLNESS: This is a 51-year-old gentleman who has a history of alcoholic liver disease who says he quit drinking 6 months ago, had cirrhosis, has had ascites. Six weeks ago, he had ascitic fluid removal done here who comes in evidently in his ____ trash can he evidently passed out. The patient was very weak, hypotensive requiring fluid and ____ 30-minute of vasopressor support. Now, he is off. He is alert, awake, able to communicate, does have some abdominal pain. Denies any nausea, vomiting, diarrhea, denies any fever, chest pain, shortness of breath, headache or visual symptoms. PAST MEDICAL HISTORY: Positive for alcoholic liver disease and cirrhosis of liver, ascites, myelitis with some paraplegia, weakness in the legs, and hypertension. SURGICAL HISTORY: The patient has had hip repair done in the past and has had a trach. SOCIAL HISTORY: Positive for smoking. He says alcohol he has not drank for the last 6 months. No drug use. ALLERGIES: No known drug allergies. CURRENT MEDICATIONS: The patient is put on cefepime. REVIEW OF SYSTEMS: As per HPI, all other systems reviewed are negative. PHYSICAL EXAMINATION: GENERAL: Alert, oriented gentleman, not in distress. VITAL SIGNS: Stable, afebrile. HEENT: NAD. NECK: Supple, no JVP, no lymphadenopathy. LUNGS: Clear. HEART: S1, S2 regular. ABDOMEN: Benign. The patient has some mild abdominal tenderness. No rebound or guarding. There is some fluid, but not significant distention. EXTREMITIES: The patient is able to move all extremities, although weakness in the legs. LABORATORY DATA: White count is 6.2, BUN and creatinine is normal. Urinalysis showed 20-40 WBCs, although there was no urinary symptoms. Blood culture is showing gram-negative noah. KUB and CT head and chest x-ray reviewed. They are unremarkable. IMPRESSION: 1. Gram-negative noah bacteremia, possible from the spontaneous bacterial peritonitis. 2. Cirrhosis of the liver. 3. Ascites. 4. Hypotension with sepsis responded to fluids and short course of Levophed. RECOMMENDATIONS: Recommend continue cefepime. Add Flagyl just in case there is anaerobe that we are dealing with. We may be dealing with supportive care. We will check the culture and adjust and will continue to follow. The patient may need a paracentesis. Thank you very much, Dr. Tavera for giving me the opportunity to participate in this patient's care. BERNICE FENG MD DR: AMOL/rui JOB#: [id number] / [id number]
[2017-05-11 07:45] VITALS: BP 133/107
[2017-05-11] MEDS: BACLOFEN 10 MG TABLET. PO SCH ×3 (08:07→20:02)
[2017-05-11] MEDS: LACTULOSE 20 GM/30 ML SOLUTION. PO SCH ×3 (08:08→20:02)
[2017-05-11] MEDS: FUROSEMIDE 40 MG TABLET. PO SCH (08:08)
[2017-05-11] MEDS: PANTOPRAZOLE 40 MG TABLET.DR. PO SCH (08:10)
[2017-05-11] MEDS: GABAPENTIN 100 MG CAPSULE. PO SCH ×4 (08:11→20:02)
[2017-05-11] MEDS: POTASSIUM CHLORIDE 20 MEQ TABLET.ER. PO SCH ×3 (08:11→20:02)
[2017-05-11] MEDS: CITALOPRAM 20 MG TABLET. PO SCH (08:13)
[2017-05-11] MEDS: amLODIPine BESYLATE 10 MG TABLET PO SCH (08:13)
[2017-05-11] MEDS: LIDOCAINE (700MG/PATCH) PATCH. TD SCH (08:28)
--- NOTE | 2017-05-11 10:14 | PDOC ---
Infectious Disease Note Subjective Subjective pt feeling better ROS ROS GEN: Denies fevers, chills, sweats HEENT: Denies blurred vision, sore throat CV: Denies chest pain RESP: Denies shortness of air, cough GI: Denies n/v/d NEURO: Denies confusion, dizziness MSK: Denies weakness, joint pain/swelling Vital Sign Vital Signs Vital Signs Date Time Temp Pulse Resp B/P (MAP) Pulse Ox O2 Delivery O2 Flow Rate FiO2 05/11/17 08:13 114 133/107 05/11/17 08:00 Room Air 05/11/17 07:45 97.6 18 95 97.6 Physical Exam PHYSICAL EXAM GENERAL: NAD, Alert HEENT: PERRL, OC/OP NECK: Supple, no JVD, no LN LUNGS: Clear HEART: S1S2, no gallop, no murmur ABD: Soft, NT, no organomegaly, no rebound EXT: No edema, no cyanosis 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
[2017-05-11 10:54] VITALS: BP 125/76
[2017-05-11] MEDS: CEFEPIME HCL 1 GM in IV NORMAL SALINE 50ML 50 ML IV SCH ×2 (10:55→20:03)
--- NOTE | 2017-05-11 11:26 | PDOC ---
PROGRESS NOTES Chief Complaint Chief Complaint cc: AMS, ascites A/P Hepatic encephalopathy: exacerbated with medications such as baclofen, and Lyrica. try lactulose Alcoholic cirrhosis, jaundice, ascites, encephalopathy: s/p paracentesis today. hold Lyrica, d/w pt about compilations such as worsening encephalopathy Severe hypokalemia: replaced Bacteremia: GNR, on cefepime follow cx, consult ID. Malnourished. : due to liver disease, prognosis poor/guarded. 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 ) Lungs: Clear, Other Abdomen: Normal bowel sounds, Other (Distended. ) Extremities: No clubbing Review of Systems Review of Systems co pain co weak Assessment and Plan Assessmemt and Plan Problems Medical Problems: (1) Altered mental status Status: Acute (2) Hypotension Status: Acute cc: AMS, ascites A/P Hepatic encephalopathy: exacerbated with medications such as baclofen, and Lyrica. try lactulose Alcoholic cirrhosis, jaundice, ascites, encephalopathy: s/p paracentesis today. hold Lyrica, d/w pt about compilations such as worsening encephalopathy Severe hypokalemia: replaced Bacteremia: GNR, on cefepime follow cx, consult ID. Malnourished. : due to liver disease, prognosis poor/guarded. HTN Depression Plan Lactulose Labs PTOt Home meds DC in am if stable Problems: Comment Review of Relevant I have reviewed the following items reyna (where applicable) has been applied. Labs Laboratory Tests Test 05/09/17 12:18 05/09/17 12:44 05/09/17 13:17 05/09/17 15:20 White Blood Count 6.0 x10^3/uL (4.0-11.0) Red Blood Count 2.70 x10^6/uL (4.30-5.70) Hemoglobin 8.9 g/dL (13.0-17.5) Hematocrit 26.3 % (39.0-53.0) Mean Corpuscular Volume 98 fL (79-100) Mean Corpuscular Hemoglobin 33 pg (25-35) Mean Corpuscular Hemoglobin Concent 34 g/dL (31-37) Red Cell Distribution Width 14.8 % (11.5-14.5) Platelet Count 85 x10^3/uL (140-400) Neutrophils (%) (Auto) 79 % (31-73) Lymphocytes (%) (Auto) 12 % (24-48) Monocytes (%) (Auto) 8 % (0-9) Eosinophils (%) (Auto) 0 % (0-3) Basophils (%) (Auto) 1 % (0-3) Neutrophils # (Auto) 4.8 x10^3uL (1.8-7.7) Lymphocytes # (Auto) 0.7 x10^3/uL (1.0-4.8) Monocytes # (Auto) 0.5 x10^3/uL (0.0-1.1) Eosinophils # (Auto) 0.0 x10^3/uL (0.0-0.7) Basophils # (Auto) 0.0 x10^3/uL (0.0-0.2) Prothrombin Time 15.9 SEC (11.7-14.0) Prothromb Time International Ratio 1.4 (0.8-1.1) Activated Partial Thromboplast Time 35 SEC (24-38) Sodium Level 137 mmol/L (136-145) Potassium Level 3.3 mmol/L (3.5-5.1) Chloride Level 101 mmol/L (98-107) Carbon Dioxide Level 29 mmol/L (21-32) Anion Gap 7 (6-14) Blood Urea Nitrogen 13 mg/dL (8-26) Creatinine 0.7 mg/dL (0.7-1.3) Estimated GFR (Cockcroft-Gault) 119.4 BUN/Creatinine Ratio 19 (6-20) Glucose Level 97 mg/dL (70-99) Lactic Acid Level 1.3 mmol/L (0.4-2.0) Calcium Level 8.0 mg/dL (8.5-10.1) Magnesium Level 1.8 mg/dL (1.8-2.4) Total Bilirubin 2.9 mg/dL (0.2-1.0) Aspartate Amino Transf (AST/SGOT) 35 U/L (15-37) Alanine Aminotransferase (ALT/SGPT) 23 U/L (16-63) Alkaline Phosphatase 241 U/L (46-116) Ammonia 51 mcmol/L (11-34) Troponin I Quantitative < 0.017 ng/mL (0.000-0.055) Total Protein 6.4 g/dL (6.4-8.2) Albumin 1.9 g/dL (3.4-5.0) Albumin/Globulin Ratio 0.4 (1.0-1.7) Ethyl Alcohol Level < 10 mg/dL (0-10) Urine Collection Type Unknown Urine Color [place] Urine Clarity Cloudy Urine pH 5.5 Urine Specific [place] 1.015 Urine Protein Negative mg/dL (NEG-TRACE) Urine Glucose (UA) Negative mg/dL (NEG) Urine Ketones (Stick) Negative mg/dL (NEG) Urine Blood Negative (NEG) Urine Nitrite Negative (NEG) Urine Bilirubin Small (NEG) Urine Urobilinogen Dipstick 1.0 mg/dL (0.2 mg/dL) Urine Leukocyte Esterase Moderate (NEG) Urine RBC 11-20 /HPF (0-2) Urine WBC 20-40 /HPF (0-4) Urine Squamous Epithelial Cells Few /LPF Urine Transitional Epithelial Cells Few /LPF Urine Amorphous Sediment Present /HPF Urine Bacteria 0 /HPF (0-FEW) Urine Hyaline Casts Many /HPF Urine Mucus Mod /LPF Urine Opiates Screen Neg (NEG) Urine Methadone Screen Neg (NEG) Urine Barbiturates Neg (NEG) Urine Phencyclidine Screen Neg (NEG) Urine Amphetamine/Methamphetamine Neg (NEG) Urine Benzodiazepines Screen Pos (NEG) Urine Cocaine Screen Neg (NEG) Urine Cannabinoids Screen Pos (NEG) Urine Ethyl Alcohol Neg (NEG) Stool Occult Blood Positive (NEG) Glucose (Fingerstick) 108 mg/dL (70-99) Test 05/09/17 17:15 05/10/17 04:20 Nasal Screen MRSA (PCR) Positive (Negative) White Blood Count 6.2 x10^3/uL (4.0-11.0) Red Blood Count 3.21 x10^6/uL (4.30-5.70) Hemoglobin 10.6 g/dL (13.0-17.5) Hematocrit 31.4 % (39.0-53.0) Mean Corpuscular Volume 98 fL (79-100) Mean Corpuscular Hemoglobin 33 pg (25-35) Mean Corpuscular Hemoglobin Concent 34 g/dL (31-37) Red Cell Distribution Width 15.1 % (11.5-14.5) Platelet Count 103 x10^3/uL (140-400) Neutrophils (%) (Auto) 78 % (31-73) Lymphocytes (%) (Auto) 12 % (24-48) Monocytes (%) (Auto) 9 % (0-9) Eosinophils (%) (Auto) 1 % (0-3) Basophils (%) (Auto) 0 % (0-3) Neutrophils # (Auto) 4.8 x10^3uL (1.8-7.7) Lymphocytes # (Auto) 0.8 x10^3/uL (1.0-4.8) Monocytes # (Auto) 0.5 x10^3/uL (0.0-1.1) Eosinophils # (Auto) 0.0 x10^3/uL (0.0-0.7) Basophils # (Auto) 0.0 x10^3/uL (0.0-0.2) Prothrombin Time 14.8 SEC (11.7-14.0) Prothromb Time International Ratio 1.2 (0.8-1.1) Activated Partial Thromboplast Time 37 SEC (24-38) Sodium Level 138 mmol/L (136-145) Potassium Level 2.4 mmol/L (3.5-5.1) Chloride Level 101 mmol/L (98-107) Carbon Dioxide Level 25 mmol/L (21-32) Anion Gap 12 (6-14) Blood Urea Nitrogen 11 mg/dL (8-26) Creatinine 0.5 mg/dL (0.7-1.3) Estimated GFR (Cockcroft-Gault) 176.0 Glucose Level 121 mg/dL (70-99) Calcium Level 8.3 mg/dL (8.5-10.1) Microbiology 05/09/17 Blood Culture - Preliminary, Resulted 05/09/17 Blood Culture Result 1 (MARILU) - Preliminary, Resulted 05/09/17 Urine Culture - Preliminary, Resulted 05/09/17 Urine Culture Result 1 (MARILU) - Preliminary, Resulted 05/10/17 Gram Stain - Final, Complete Medications Current Medications Sodium Chloride 1,000 ml @ 1,000 mls/hr 1X ONCE IV Last administered on 12:27; Start 05/09/17 at 12:15; Stop 05/09/17 at 13:14; Status DC Naloxone HCl 2 mg/ Dextrose 502 ml @ 0 mls/hr 1X ONCE IV Last administered on 05/09/17 12:46; Start 05/09/17 at 12:45; Stop 05/09/17 at 13:12; Status DC Naloxone HCl (Narcan) 2 mg 1X ONCE IV Last administered on 05/09/17 12:35; Start 05/09/17 at 12:45; Stop 05/09/17 at 12:46; Status DC Sodium Chloride 1,000 ml @ 1,000 mls/hr 1X ONCE IV Last administered on 12:52; Start 05/09/17 at 13:00; Stop 05/09/17 at 13:59; Status DC Norepinephrine Bitartrate 250 ml @ 0 mls/hr 1X ONCE IV Last administered on 13:31; Start 05/09/17 at 13:30; Stop 05/09/17 at 13:31; Status DC Ondansetron HCl (Zofran) 4 mg PRN Q8HRS PRN IV NAUSEA/VOMITING; Start 05/09/17 at 14:00; Stop 05/10/17 at 13:59; Status DC Acetaminophen (Tylenol) 650 mg PRN Q4HRS PRN PO FEVER; Start 05/09/17 at 14:00 ; Stop 05/10/17 at 13:59; Status DC Amlodipine Besylate (Norvasc) 10 mg DAILY PO Last administered on 05/11/17 08: 13; Start 05/10/17 at 09:00 Baclofen (Lioresal) 20 mg TID PO Last administered on 05/11/17 08:07; Start at 21:00 Furosemide (Lasix) 60 mg TID PO Last administered on 05/09/17 20:59; Start at 21:00; Stop 05/10/17 at 06:08; Status DC Gabapentin (Neurontin) 100 mg TID PO Last administered on 05/10/17 09:29; Start 05/09/17 at 21:00 Pantoprazole Sodium (Protonix) 40 mg DAILYAC PO Last administered on 05/11/17 08:10; Start 05/10/17 at 07:30 Temazepam (Restoril) 30 mg PRN QHS PRN PO INSOMNIA Last administered on 20:30; Start 05/09/17 at 16:00 Non-Formulary Medication 2 tab TID PO ; Start 05/09/17 at 21:00; Status UNV Citalopram Hydrobromide (CeleXA) 40 mg DAILY PO Last administered on 05/11/17 08:13; Start 05/10/17 at 09:00 Lactulose 20 gm TID PO Last administered on 05/11/17 08:08; Start 05/09/17 at 21:00 Potassium Chloride (Klor-Con) 40 meq DAILYWBKFT PO ; Start 05/10/17 at 08:00; Stop 05/10/17 at 08:00; Status DC Pregabalin (Lyrica) 150 mg TID PO Last administered on 05/10/17 09:29; Start 05/09/17 at 21:00; Stop 05/10/17 at 14:52; Status DC Hydralazine HCl (Apresoline) 10 mg PRN Q4HRS PRN IVP ELEVATED BP, SEE COMMENTS ; Start 05/09/17 at 16:00 Potassium Chloride/Sodium Chloride 1,000 ml @ 50 mls/hr Q20H IV Last administered on 05/11/17 10:58; Start 05/09/17 at 16:30 Pneumococcal Polyvalent Vaccine (Do NOT chart on this placeholder) 1 each 1X ONCE MC ; Start 05/09/17 at 18:00; Stop 05/09/17 at 18:01; Status UNV Furosemide (Lasix) 60 mg DAILY PO Last administered on 05/11/17 08:08; Start 05/10/17 at 09:00 Potassium Chloride (Klor-Con) 40 meq TID PO Last administered on 05/11/17 08: 11; Start 05/10/17 at 09:00 Lidocaine/Sodium Bicarbonate (Buffered Lidocaine 1%) 20 ml STK-MED ONCE IJ ; Start 05/10/17 at 08:09; Stop 05/10/17 at 08:10; Status DC Lidocaine/Sodium Bicarbonate (Buffered Lidocaine 1%) 10 ml 1X ONCE IJ Last administered on 05/10/17 08:50; Start 05/10/17 at 08:45; Stop 05/10/17 at 08:46 ; Status DC Albumin Human 200 ml @ 200 mls/hr 1X ONCE IV Last administered on 05/10/17 09:28; Start 05/10/17 at 09:00; Stop 05/10/17 at 09:59; Status DC Cefepime HCl 1 gm/ Sodium Chloride 50 ml @ 100 mls/hr BID IV Last administered on 05/11/17 10:55; Start 05/10/17 at 09:30 Metronidazole 100 ml @ 100 mls/hr Q12HR IV Last administered on 05/11/17 07: 59; Start 05/10/17 at 12:00 Lidocaine (Lidoderm) 1 patch DAILY TD Last administered on 05/10/17 23:34; Start 05/10/17 at 23:00 Active Scripts Active K-Tab ER (Potassium Chloride) 20 Meq Tablet.er 40 Meq PO DAILY 30 Days Reported Lyrica (Pregabalin) 150 Mg Capsule 150 Mg PO TID 30 Days Tizanidine Hcl 4 Mg Tablet 2 Tab PO Q8HRS Furosemide 40 Mg Tablet 1.5 Tab PO TID Vitamin D2 (Ergocalciferol (Vitamin D2)) 50,000 Unit Capsule 1 Cap PO 3X/WEEK Citalopram Hbr (Citalopram Hydrobromide) 40 Mg Tablet 1 Tab PO DAILY Fluoxetine Hcl 20 Mg Tablet 30 Mg PO DAILY Gabapentin 100 Mg Capsule 100 Mg PO TID Acamprosate Calcium 333 Mg Tablet.dr 2 Tab PO TID 90 Days Baclofen 10 Mg Tablet 2 Tab PO TID Zolpidem Tartrate 10 Mg Tablet 1 Tab PO QHS Temazepam 30 Mg Capsule 30 Mg PO HS PRN Lactulose 20 Gm/30 Ml Solution 20 Gm PO TID Cyclobenzaprine Hcl 10 Mg Tablet 1 Tab PO TID PRN Protonix (Pantoprazole Sodium) 40 Mg Tablet.dr 40 Mg PO DAILY Amlodipine Besylate 10 Mg Tablet 10 Mg PO DAILY Gave this morning Take tomorrow morning Vitals/I & O Vital Sign - Last 24 Hours 05/10/17 05/10/17 05/10/17 05/10/17 12:00 16:30 19:48 22:41 Temp 98.4 97.9 97.7 98.0 98.4 97.9 97.7 98.0 Pulse 107 107 113 103 Resp 16 16 20 20 B/P (MAP) 149/86 (107) 131/79 (96) 111/68 (82) 117/74 (88) Pulse Ox 100 100 100 98 O2 Delivery Room Air Room Air Room Air Room Air 05/11/17 05/11/17 05/11/17 05/11/17 07:45 08:00 08:13 10:54 Temp 97.6 97.7 97.6 97.7 Pulse 114 114 116 Resp 18 18 B/P (MAP) 133/107 (116) 133/107 125/76 (92) Pulse Ox 95 96 O2 Delivery Room Air Room Air Room Air Intake and Output 05/10/17 05/10/17 05/11/17 15:00 23:00 07:00 Intake Total 1200 ml 725 ml 440 ml Output Total 300 ml 575 ml Balance 900 ml 725 ml -135 ml Nutrition Consultation Dietary Evaluation: Recommendations by RD: Dietary education by RD, Increase Calorie Intake Comments: provide DBL meat portions strawberry boost / ice cream shakes tid Expected Outcomes/Goals: to meet > 75% est nutr needs Interpretation of weight loss: >5% in 1 month Malnutrition Findings: Food and Nutrition Intake (Sev: <50% est energy req 5days Body Fat Depletion (Non Severe: Mild Depletion 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
[2017-05-11 12:19] LABS: BASO % 1 % (0-3); EOS % 0 % (0-3); HEMATOCRIT 31.4 % (39.0-53.0); HEMOGLOBIN 10.8 g/dL (13.0-17.5); LYMPH # 0.5 x10^3/uL (1.0-4.8); LYMPH % 10 % (24-48); MEAN CORPUSCULAR HEMOGLOBIN 34 pg (25-35); MEAN CORPUSCULAR HGB CONC 34 g/dL (31-37); MEAN CORPUSCULAR VOLUME 98 fL (79-100); MONO % 11 % (0-9); NEUT % 78 % (31-73); PLATELET COUNT 99 x10^3/uL (140-400); RED CELL DISTRIBUTION WIDTH 15.2 % (11.5-14.5); WHITE BLOOD COUNT 5.5 x10^3/uL (4.0-11.0)
[2017-05-11 12:33] LABS: ALBUMIN 2.4 g/dL (3.4-5.0); ALBUMIN/GLOBULIN RATIO 0.5 (1.0-1.7); CALCIUM 8.3 mg/dL (8.5-10.1); CREATININE 0.6 mg/dL (0.7-1.3); GFR 142.6; POTASSIUM 4.5 mmol/L (3.5-5.1); TOTAL BILIRUBIN 2.1 mg/dL (0.2-1.0); TOTAL PROTEIN 7.4 g/dL (6.4-8.2)
[2017-05-11 14:59] VITALS: BP 137/88
[2017-05-11] MEDS: TEMAZEPAM 15 MG CAPSULE PO PRN (20:00)
[2017-05-11 23:40] VITALS: BP 126/85
[2017-05-12 03:40] VITALS: BP 138/80
[2017-05-12 07:00] VITALS: BP 155/98
[2017-05-12] MEDS: CEFEPIME HCL 1 GM in IV NORMAL SALINE 50ML 50 ML IV SCH (08:28)
[2017-05-12] MEDS: FUROSEMIDE 40 MG TABLET. PO SCH (08:33)
[2017-05-12] MEDS: LIDOCAINE (700MG/PATCH) PATCH. TD SCH (08:33)
[2017-05-12] MEDS: GABAPENTIN 100 MG CAPSULE. PO SCH ×3 (08:34→20:35)
[2017-05-12] MEDS: LACTULOSE 20 GM/30 ML SOLUTION. PO SCH ×3 (08:34→20:35)
[2017-05-12] MEDS: PANTOPRAZOLE 40 MG TABLET.DR. PO SCH (08:34)
[2017-05-12] MEDS: BACLOFEN 10 MG TABLET. PO SCH ×3 (08:35→20:34)
[2017-05-12] MEDS: amLODIPine BESYLATE 10 MG TABLET PO SCH (08:35)
[2017-05-12] MEDS: CITALOPRAM 20 MG TABLET. PO SCH (08:35)
--- NOTE | 2017-05-12 08:57 | PDOC ---
PROGRESS NOTES Chief Complaint Chief Complaint cc: AMS, ascites A/P Hepatic encephalopathy: exacerbated with medications such as baclofen, and Lyrica. try lactulose Alcoholic cirrhosis, jaundice, ascites, encephalopathy: s/p paracentesis today. hold Lyrica, d/w pt about compilations such as worsening encephalopathy Severe hypokalemia: replaced Bacteremia: GNR, on cefepime follow cx, consult ID. Malnourished. : due to liver disease, prognosis poor/guarded. HTN Depression History of Present Illness History of Present Illness Resting with NAD VSS Abdomen still chronically distended Vitals Vitals Vital Signs Date Time Temp Pulse Resp B/P (MAP) Pulse Ox O2 Delivery O2 Flow Rate FiO2 05/12/17 08:35 105 155/98 05/12/17 07:00 97.9 17 97 Room Air 97.9 Physical Exam General: No acute distress, Other (malnourished, ) Heart: Normal S1, Other (TACHYCARDIA. ) Lungs: Clear, Other Abdomen: Normal bowel sounds, Other (Distended. ) Extremities: No clubbing Skin: No breakdown Labs LABS Laboratory Tests Test 05/11/17 11:45 White Blood Count 5.5 x10^3/uL (4.0-11.0) Red Blood Count 3.20 x10^6/uL (4.30-5.70) Hemoglobin 10.8 g/dL (13.0-17.5) Hematocrit 31.4 % (39.0-53.0) Mean Corpuscular Volume 98 fL (79-100) Mean Corpuscular Hemoglobin 34 pg (25-35) Mean Corpuscular Hemoglobin Concent 34 g/dL (31-37) Red Cell Distribution Width 15.2 % (11.5-14.5) Platelet Count 99 x10^3/uL (140-400) Neutrophils (%) (Auto) 78 % (31-73) Lymphocytes (%) (Auto) 10 % (24-48) Monocytes (%) (Auto) 11 % (0-9) Eosinophils (%) (Auto) 0 % (0-3) Basophils (%) (Auto) 1 % (0-3) Neutrophils # (Auto) 4.3 x10^3uL (1.8-7.7) Lymphocytes # (Auto) 0.5 x10^3/uL (1.0-4.8) Monocytes # (Auto) 0.6 x10^3/uL (0.0-1.1) Eosinophils # (Auto) 0.0 x10^3/uL (0.0-0.7) Basophils # (Auto) 0.0 x10^3/uL (0.0-0.2) Sodium Level 140 mmol/L (136-145) Potassium Level 4.5 mmol/L (3.5-5.1) Chloride Level 108 mmol/L (98-107) Carbon Dioxide Level 23 mmol/L (21-32) Anion Gap 9 (6-14) Blood Urea Nitrogen 9 mg/dL (8-26) Creatinine 0.6 mg/dL (0.7-1.3) Estimated GFR (Cockcroft-Gault) 142.6 BUN/Creatinine Ratio 15 (6-20) Glucose Level 131 mg/dL (70-99) Calcium Level 8.3 mg/dL (8.5-10.1) Total Bilirubin 2.1 mg/dL (0.2-1.0) Aspartate Amino Transf (AST/SGOT) 43 U/L (15-37) Alanine Aminotransferase (ALT/SGPT) 19 U/L (16-63) Alkaline Phosphatase 238 U/L (46-116) Total Protein 7.4 g/dL (6.4-8.2) Albumin 2.4 g/dL (3.4-5.0) Albumin/Globulin Ratio 0.5 (1.0-1.7) Review of Systems Review of Systems no complaints Assessment and Plan Assessmemt and Plan Problems Medical Problems: (1) Altered mental status Status: Acute (2) Hypotension Status: Acute cc: AMS, ascites A/P Hepatic encephalopathy: exacerbated with medications such as baclofen, and Lyrica. try lactulose Alcoholic cirrhosis, jaundice, ascites, encephalopathy: s/p paracentesis today. hold Lyrica, d/w pt about compilations such as worsening encephalopathy Severe hypokalemia: replaced Bacteremia: GNR, on cefepime follow cx, consult ID. Malnourished. : due to liver disease, prognosis poor/guarded. HTN Depression Plan Possible dc today? Cont current meds Will dw case mgmt Problems: Comment Review of Relevant I have reviewed the following items reyna (where applicable) has been applied. Labs Laboratory Tests Test 05/11/17 11:45 White Blood Count 5.5 x10^3/uL (4.0-11.0) Red Blood Count 3.20 x10^6/uL (4.30-5.70) Hemoglobin 10.8 g/dL (13.0-17.5) Hematocrit 31.4 % (39.0-53.0) Mean Corpuscular Volume 98 fL (79-100) Mean Corpuscular Hemoglobin 34 pg (25-35) Mean Corpuscular Hemoglobin Concent 34 g/dL (31-37) Red Cell Distribution Width 15.2 % (11.5-14.5) Platelet Count 99 x10^3/uL (140-400) Neutrophils (%) (Auto) 78 % (31-73) Lymphocytes (%) (Auto) 10 % (24-48) Monocytes (%) (Auto) 11 % (0-9) Eosinophils (%) (Auto) 0 % (0-3) Basophils (%) (Auto) 1 % (0-3) Neutrophils # (Auto) 4.3 x10^3uL (1.8-7.7) Lymphocytes # (Auto) 0.5 x10^3/uL (1.0-4.8) Monocytes # (Auto) 0.6 x10^3/uL (0.0-1.1) Eosinophils # (Auto) 0.0 x10^3/uL (0.0-0.7) Basophils # (Auto) 0.0 x10^3/uL (0.0-0.2) Sodium Level 140 mmol/L (136-145) Potassium Level 4.5 mmol/L (3.5-5.1) Chloride Level 108 mmol/L (98-107) Carbon Dioxide Level 23 mmol/L (21-32) Anion Gap 9 (6-14) Blood Urea Nitrogen 9 mg/dL (8-26) Creatinine 0.6 mg/dL (0.7-1.3) Estimated GFR (Cockcroft-Gault) 142.6 BUN/Creatinine Ratio 15 (6-20) Glucose Level 131 mg/dL (70-99) Calcium Level 8.3 mg/dL (8.5-10.1) Total Bilirubin 2.1 mg/dL (0.2-1.0) Aspartate Amino Transf (AST/SGOT) 43 U/L (15-37) Alanine Aminotransferase (ALT/SGPT) 19 U/L (16-63) Alkaline Phosphatase 238 U/L (46-116) Total Protein 7.4 g/dL (6.4-8.2) Albumin 2.4 g/dL (3.4-5.0) Albumin/Globulin Ratio 0.5 (1.0-1.7) Laboratory Tests Test 05/11/17 11:45 White Blood Count 5.5 x10^3/uL (4.0-11.0) Red Blood Count 3.20 x10^6/uL (4.30-5.70) Hemoglobin 10.8 g/dL (13.0-17.5) Hematocrit 31.4 % (39.0-53.0) Mean Corpuscular Volume 98 fL (79-100) Mean Corpuscular Hemoglobin 34 pg (25-35) Mean Corpuscular Hemoglobin Concent 34 g/dL (31-37) Red Cell Distribution Width 15.2 % (11.5-14.5) Platelet Count 99 x10^3/uL (140-400) Neutrophils (%) (Auto) 78 % (31-73) Lymphocytes (%) (Auto) 10 % (24-48) Monocytes (%) (Auto) 11 % (0-9) Eosinophils (%) (Auto) 0 % (0-3) Basophils (%) (Auto) 1 % (0-3) Neutrophils # (Auto) 4.3 x10^3uL (1.8-7.7) Lymphocytes # (Auto) 0.5 x10^3/uL (1.0-4.8) Monocytes # (Auto) 0.6 x10^3/uL (0.0-1.1) Eosinophils # (Auto) 0.0 x10^3/uL (0.0-0.7) Basophils # (Auto) 0.0 x10^3/uL (0.0-0.2) Sodium Level 140 mmol/L (136-145) Potassium Level 4.5 mmol/L (3.5-5.1) Chloride Level 108 mmol/L (98-107) Carbon Dioxide Level 23 mmol/L (21-32) Anion Gap 9 (6-14) Blood Urea Nitrogen 9 mg/dL (8-26) Creatinine 0.6 mg/dL (0.7-1.3) Estimated GFR (Cockcroft-Gault) 142.6 BUN/Creatinine Ratio 15 (6-20) Glucose Level 131 mg/dL (70-99) Calcium Level 8.3 mg/dL (8.5-10.1) Total Bilirubin 2.1 mg/dL (0.2-1.0) Aspartate Amino Transf (AST/SGOT) 43 U/L (15-37) Alanine Aminotransferase (ALT/SGPT) 19 U/L (16-63) Alkaline Phosphatase 238 U/L (46-116) Total Protein 7.4 g/dL (6.4-8.2) Albumin 2.4 g/dL (3.4-5.0) Albumin/Globulin Ratio 0.5 (1.0-1.7) Microbiology 05/09/17 Blood Culture - Preliminary, Resulted 05/09/17 Blood Culture Result 1 (MARILU) - Preliminary, Resulted 05/10/17 Anaerobic/Aerobic Culture, Resulted Pending 05/10/17 Anaerobic Culture Result 1 (MARILU), Resulted Pending 05/10/17 Aerobic Culture - Preliminary, Resulted 05/10/17 Aerobic Culture Result 1 (MARILU) - Preliminary, Resulted 05/09/17 Urine Culture - Final, Complete 05/09/17 Urine Culture Result 1 (MARILU) - Final, Complete 05/09/17 Antimicrobic Susceptibility - Final, Complete 05/10/17 Gram Stain - Final, Complete Medications Current Medications Sodium Chloride 1,000 ml @ 1,000 mls/hr 1X ONCE IV Last administered on 12:27; Start 05/09/17 at 12:15; Stop 05/09/17 at 13:14; Status DC Naloxone HCl 2 mg/ Dextrose 502 ml @ 0 mls/hr 1X ONCE IV Last administered on 05/09/17 12:46; Start 05/09/17 at 12:45; Stop 05/09/17 at 13:12; Status DC Naloxone HCl (Narcan) 2 mg 1X ONCE IV Last administered on 05/09/17 12:35; Start 05/09/17 at 12:45; Stop 05/09/17 at 12:46; Status DC Sodium Chloride 1,000 ml @ 1,000 mls/hr 1X ONCE IV Last administered on 12:52; Start 05/09/17 at 13:00; Stop 05/09/17 at 13:59; Status DC Norepinephrine Bitartrate 250 ml @ 0 mls/hr 1X ONCE IV Last administered on 13:31; Start 05/09/17 at 13:30; Stop 05/09/17 at 13:31; Status DC Ondansetron HCl (Zofran) 4 mg PRN Q8HRS PRN IV NAUSEA/VOMITING; Start 05/09/17 at 14:00; Stop 05/10/17 at 13:59; Status DC Acetaminophen (Tylenol) 650 mg PRN Q4HRS PRN PO FEVER; Start 05/09/17 at 14:00 ; Stop 05/10/17 at 13:59; Status DC Amlodipine Besylate (Norvasc) 10 mg DAILY PO Last administered on 05/12/17 08: 35; Start 05/10/17 at 09:00 Baclofen (Lioresal) 20 mg TID PO Last administered on 05/12/17 08:35; Start at 21:00 Furosemide (Lasix) 60 mg TID PO Last administered on 05/09/17 20:59; Start at 21:00; Stop 05/10/17 at 06:08; Status DC Gabapentin (Neurontin) 100 mg TID PO Last administered on 05/10/17 09:29; Start 05/09/17 at 21:00 Pantoprazole Sodium (Protonix) 40 mg DAILYAC PO Last administered on 05/12/17 08:34; Start 05/10/17 at 07:30 Temazepam (Restoril) 30 mg PRN QHS PRN PO INSOMNIA Last administered on 20:00; Start 05/09/17 at 16:00 Non-Formulary Medication 2 tab TID PO ; Start 05/09/17 at 21:00; Status UNV Citalopram Hydrobromide (CeleXA) 40 mg DAILY PO Last administered on 05/12/17 08:35; Start 05/10/17 at 09:00 Lactulose 20 gm TID PO Last administered on 05/11/17 20:02; Start 05/09/17 at 21:00 Potassium Chloride (Klor-Con) 40 meq DAILYWBKFT PO ; Start 05/10/17 at 08:00; Stop 05/10/17 at 08:00; Status DC Pregabalin (Lyrica) 150 mg TID PO Last administered on 05/10/17 09:29; Start 05/09/17 at 21:00; Stop 05/10/17 at 14:52; Status DC Hydralazine HCl (Apresoline) 10 mg PRN Q4HRS PRN IVP ELEVATED BP, SEE COMMENTS ; Start 05/09/17 at 16:00 Potassium Chloride/Sodium Chloride 1,000 ml @ 50 mls/hr Q20H IV Last administered on 05/11/17 10:58; Start 05/09/17 at 16:30 Pneumococcal Polyvalent Vaccine (Do NOT chart on this placeholder) 1 each 1X ONCE MC ; Start 05/09/17 at 18:00; Stop 05/09/17 at 18:01; Status UNV Furosemide (Lasix) 60 mg DAILY PO Last administered on 05/12/17 08:33; Start 05/10/17 at 09:00 Potassium Chloride (Klor-Con) 40 meq TID PO Last administered on 05/11/17 20: 02; Start 05/10/17 at 09:00 Lidocaine/Sodium Bicarbonate (Buffered Lidocaine 1%) 20 ml STK-MED ONCE IJ ; Start 05/10/17 at 08:09; Stop 05/10/17 at 08:10; Status DC Lidocaine/Sodium Bicarbonate (Buffered Lidocaine 1%) 10 ml 1X ONCE IJ Last administered on 05/10/17 08:50; Start 05/10/17 at 08:45; Stop 05/10/17 at 08:46 ; Status DC Albumin Human 200 ml @ 200 mls/hr 1X ONCE IV Last administered on 05/10/17 09:28; Start 05/10/17 at 09:00; Stop 05/10/17 at 09:59; Status DC Cefepime HCl 1 gm/ Sodium Chloride 50 ml @ 100 mls/hr BID IV Last administered on 05/12/17 08:28; Start 05/10/17 at 09:30 Metronidazole 100 ml @ 100 mls/hr Q12HR IV Last administered on 05/11/17 21: 56; Start 05/10/17 at 12:00 Lidocaine (Lidoderm) 1 patch DAILY TD Last administered on 05/12/17t 08:33; Start 05/10/17 at 23:00 Active Scripts Active K-Tab ER (Potassium Chloride) 20 Meq Tablet.er 40 Meq PO DAILY 30 Days Reported Lyrica (Pregabalin) 150 Mg Capsule 150 Mg PO TID 30 Days Tizanidine Hcl 4 Mg Tablet 2 Tab PO Q8HRS Furosemide 40 Mg Tablet 1.5 Tab PO TID Vitamin D2 (Ergocalciferol (Vitamin D2)) 50,000 Unit Capsule 1 Cap PO 3X/WEEK Citalopram Hbr (Citalopram Hydrobromide) 40 Mg Tablet 1 Tab PO DAILY Fluoxetine Hcl 20 Mg Tablet 30 Mg PO DAILY Gabapentin 100 Mg Capsule 100 Mg PO TID Acamprosate Calcium 333 Mg Tablet.dr 2 Tab PO TID 90 Days Baclofen 10 Mg Tablet 2 Tab PO TID Zolpidem Tartrate 10 Mg Tablet 1 Tab PO QHS Temazepam 30 Mg Capsule 30 Mg PO HS PRN Lactulose 20 Gm/30 Ml Solution 20 Gm PO TID Cyclobenzaprine Hcl 10 Mg Tablet 1 Tab PO TID PRN Protonix (Pantoprazole Sodium) 40 Mg Tablet.dr 40 Mg PO DAILY Amlodipine Besylate 10 Mg Tablet 10 Mg PO DAILY Gave this morning Take tomorrow morning Vitals/I & O Vital Sign - Last 24 Hours 05/11/17 05/11/17 05/11/17 05/12/17 10:54 14:59 23:40 03:40 Temp 97.7 98.5 98.1 97.9 97.7 98.5 98.1 97.9 Pulse 116 107 99 97 Resp 18 18 18 18 B/P (MAP) 125/76 (92) 137/88 (104) 126/85 (99) 138/80 (99) Pulse Ox 96 97 97 98 O2 Delivery Room Air Room Air Room Air Room Air 05/12/17 05/12/17 07:00 08:35 Temp 97.9 97.9 Pulse 105 105 Resp 17 B/P (MAP) 155/98 (117) 155/98 Pulse Ox 97 O2 Delivery Room Air Intake and Output 05/11/17 05/11/17 05/12/17 15:00 23:00 07:00 Intake Total 1000 ml 400 ml Output Total 450 ml 400 ml Balance 550 ml 0 ml Nutrition Consultation Dietary Evaluation: Recommendations by RD: Dietary education by RD, Increase Calorie Intake Comments: provide DBL meat portions strawberry boost / ice cream shakes tid Expected Outcomes/Goals: to meet > 75% est nutr needs Interpretation of weight loss: >5% in 1 month Malnutrition Findings: Food and Nutrition Intake (Sev: <50% est energy req 5days Body Fat Depletion (Non Severe: Mild Depletion Reduced Nurse Anesthetist Strength: N/A Weight Status: Appropriate Fluid Accumulation (Severe): Severe MARGE RODRÍGUEZ III DO May 12, 2017 08:57
[2017-05-12] MEDS: POTASSIUM CHLORIDE 20 MEQ TABLET.ER. PO SCH ×3 (09:00→20:35)
[2017-05-12 11:09] VITALS: BP 139/91
--- NOTE | 2017-05-12 11:45 | PDOC ---
Infectious Disease Note Subjective Subjective Feeling alright Less abdominal discomfort Some diarrhea earlier ROS ROS GEN: Denies fevers, chills, sweats CV: Denies chest pain RESP: Denies shortness of air, cough GI: Denies n/v Vital Sign Vital Signs Vital Signs Date Time Temp Pulse Resp B/P (MAP) Pulse Ox O2 Delivery O2 Flow Rate FiO2 05/12/17 11:09 97.8 115 18 139/91 (107) 97 Room Air 97.8 Physical Exam PHYSICAL EXAM GENERAL: Lying down, NAD HEENT: PERRL, OC/OP clear LUNGS: Clear HEART: S1S2, no gallop, no murmur ABD: + ascites, BS active, soft, NT : Caputo EXT: No edema, no cyanosis. Paraplegia, minimal movement left leg SKIN: No rash IV: ok Labs Lab Laboratory Tests Test 05/11/17 11:45 White Blood Count 5.5 x10^3/uL (4.0-11.0) Red Blood Count 3.20 x10^6/uL (4.30-5.70) Hemoglobin 10.8 g/dL (13.0-17.5) Hematocrit 31.4 % (39.0-53.0) Mean Corpuscular Volume 98 fL (79-100) Mean Corpuscular Hemoglobin 34 pg (25-35) Mean Corpuscular Hemoglobin Concent 34 g/dL (31-37) Red Cell Distribution Width 15.2 % (11.5-14.5) Platelet Count 99 x10^3/uL (140-400) Neutrophils (%) (Auto) 78 % (31-73) Lymphocytes (%) (Auto) 10 % (24-48) Monocytes (%) (Auto) 11 % (0-9) Eosinophils (%) (Auto) 0 % (0-3) Basophils (%) (Auto) 1 % (0-3) Neutrophils # (Auto) 4.3 x10^3uL (1.8-7.7) Lymphocytes # (Auto) 0.5 x10^3/uL (1.0-4.8) Monocytes # (Auto) 0.6 x10^3/uL (0.0-1.1) Eosinophils # (Auto) 0.0 x10^3/uL (0.0-0.7) Basophils # (Auto) 0.0 x10^3/uL (0.0-0.2) Sodium Level 140 mmol/L (136-145) Potassium Level 4.5 mmol/L (3.5-5.1) Chloride Level 108 mmol/L (98-107) Carbon Dioxide Level 23 mmol/L (21-32) Anion Gap 9 (6-14) Blood Urea Nitrogen 9 mg/dL (8-26) Creatinine 0.6 mg/dL (0.7-1.3) Estimated GFR (Cockcroft-Gault) 142.6 BUN/Creatinine Ratio 15 (6-20) Glucose Level 131 mg/dL (70-99) Calcium Level 8.3 mg/dL (8.5-10.1) Total Bilirubin 2.1 mg/dL (0.2-1.0) Aspartate Amino Transf (AST/SGOT) 43 U/L (15-37) Alanine Aminotransferase (ALT/SGPT) 19 U/L (16-63) Alkaline Phosphatase 238 U/L (46-116) Total Protein 7.4 g/dL (6.4-8.2) Albumin 2.4 g/dL (3.4-5.0) Albumin/Globulin Ratio 0.5 (1.0-1.7) Micro BLD CULT RESULT 1 Preliminary Escherichia coli Antibiotic RSLT#1 Amoxicillin/Clavulanic Acid S Ampicillin R Cefepime S Ceftriaxone S Cefuroxime S Cephalothin I Ciprofloxacin S Ertapenem S Gentamicin S Imipenem S Levofloxacin S Nitrofurantoin S Piperacillin R Tetracycline S Tobramycin S Trimethoprim/Sulfa R Abdominal fluid ANAEROBIC-AEROBIC CULTURE Preliminary Preliminary report ANAEROBIC RES 1 Preliminary Comment No anaerobes recovered in 48 hours. AEROBIC CULT Preliminary Preliminary report AEROBIC RES 1 Preliminary Comment No growth in 48 hours. Objective Assessment Sepsis GNR bacteremia, POA. E. coli Cirrhosis of liver w ascites. s/p paracentesis, 05/09. cx NGTD Syncope/hypotension ETOH liver disease MRSA + Screen Plan Plan of Care D/c cefepime and begin Rocephin anticipate potential d/c 05/13 D/c Flagyl Hold discharge for now Attending Co-Sign Attending Co-Sign The patient was seen and interviewed as well as examined at the bedside. The chart was reviewed. The case was discussed. Agree with the plan of care. IDALMIS LY APRN May 12, 2017 11:45 BRANDON BAUMAN MD May 12, 2017 14:44
[2017-05-12 14:50] VITALS: BP 134/89
[2017-05-12 19:43] VITALS: BP 145/91
[2017-05-12] MEDS ORDERED: fentaNYL PF VIAL 100 MCG/2 ML VIAL IV PRN (22:30)
[2017-05-12 23:47] VITALS: BP 144/94
[2017-05-13] MEDS: TEMAZEPAM 15 MG CAPSULE PO PRN (00:40)
[2017-05-13 07:20] VITALS: BP 138/93
[2017-05-13] MEDS: amLODIPine BESYLATE 10 MG TABLET PO SCH (08:17)
[2017-05-13] MEDS: FUROSEMIDE 40 MG TABLET. PO SCH (08:18)
[2017-05-13] MEDS: BACLOFEN 10 MG TABLET. PO SCH (08:18)
[2017-05-13] MEDS: CITALOPRAM 20 MG TABLET. PO SCH (08:19)
[2017-05-13] MEDS: PANTOPRAZOLE 40 MG TABLET.DR. PO SCH (08:20)
[2017-05-13] MEDS: POTASSIUM CHLORIDE 20 MEQ TABLET.ER. PO SCH (08:20)
[2017-05-13] MEDS: LIDOCAINE (700MG/PATCH) PATCH. TD SCH (08:20)
[2017-05-13] MEDS: LACTULOSE 20 GM/30 ML SOLUTION. PO SCH (08:30)
[2017-05-13] MEDS: GABAPENTIN 100 MG CAPSULE. PO SCH (08:31)
--- NOTE | 2017-05-13 09:33 | PDOC ---
Infectious Disease Note Subjective Subjective Wants to go home Comfortable at the moment Eating ROS ROS GEN: Denies fevers, chills, sweats CV: Denies chest pain RESP: Denies shortness of air, cough GI: Denies n/v/d NEURO: Denies confusion, dizziness Vital Sign Vital Signs Vital Signs Date Time Temp Pulse Resp B/P (MAP) Pulse Ox O2 Delivery O2 Flow Rate FiO2 05/13/17 08:17 106 138/93 05/13/17 07:20 97.5 20 98 Room Air 97.5 Physical Exam PHYSICAL EXAM GENERAL: Propped up in bed, eating NAD LUNGS: Clear HEART: S1S2, no gallop, no murmur ABD: + ascites, BS active, soft, NT : Caputo EXT: No edema, no cyanosis INBOUND SALES MANAGER: Alert, oriented x 3, no focal neurologic deficit SKIN: No rash IV: ok Labs Lab Laboratory Tests Test 05/13/17 03:15 Potassium Level 3.5 mmol/L (3.5-5.1) Micro BLD CULT RESULT 1 Preliminary Escherichia coli Antibiotic RSLT#1 Amoxicillin/Clavulanic Acid S Ampicillin R Cefepime S Ceftriaxone S Cefuroxime S Cephalothin I Ciprofloxacin S Ertapenem S Gentamicin S Imipenem S Levofloxacin S Nitrofurantoin S Piperacillin R Tetracycline S Tobramycin S Trimethoprim/Sulfa R Abdominal fluid ANAEROBIC-AEROBIC CULTURE Preliminary Preliminary report ANAEROBIC RES 1 Preliminary Comment No anaerobes recovered in 48 hours. AEROBIC CULT Final Final report AEROBIC RES 1 Final Comment No growth in 56 - 72 hours. Objective Assessment Sepsis GNR bacteremia, POA. E. coli Cirrhosis of liver w ascites. s/p paracentesis, 05/09. cx NGTD Syncope/hypotension ETOH liver disease Plan Plan of Care Rocephin, change to po soon Discharged before I could round. Alerted nursing need for abx and to contact discharging MD Attending Co-Sign Attending Co-Sign The patient was seen and interviewed as well as examined at the bedside. The chart was reviewed. The case was discussed. Agree with the plan of care. IDALMIS LY APRN May 13, 2017 09:33 BRANDON BAUMAN MD May 13, 2017 13:08
[2017-05-13 11:03] VITALS: BP 117/89
--- NOTE | 2017-05-13 14:14 | DS ---
DATE OF DISCHARGE: 05/13/2017 ADMISSION DIAGNOSES: Hepatic encephalopathy, alcohol abuse, massive ascites, paraplegia. DISCHARGE DIAGNOSES: Resolving ascites after 10 liters are drained, resolving hepatic encephalopathy. HOSPITAL COURSE: The patient is a pleasant 51-year-old male well known to our service. He used to drink a lot. He has cirrhosis and developed ascites and gets confused at times. Basically admitted the patient. We gave him lactulose. We drained his belly. Now he is doing better. We plan to discharge. The patient was seen and examined this morning. His heart sounds were normal. His lungs were clear. His abdomen is still distended, but better. Extremities, trace edema. Skin, no rashes. We plan to discharge. DISPOSITION: Home. ACTIVITY: As tolerated. DIET: Low sodium. MEDICATIONS: Please see the MRAD. TOTAL TIME: 37 minutes. BREL Lianne RODRÍGUEZ DO DR: ROBIN/rui JOB#: [id number] / [id number]
== END 2017-05-13 12:13 | disposition home or self-care (01) | DRG 871 ==
LOC: ER 12:09 → 1 WEST ICU 13:20 → 6 SOUTH 05-10 16:15
PROVIDERS: ADMIT Internal Medicine Hematology & Oncology; ATTEND Internal Medicine Hematology & Oncology
PROC: 0W9G3ZX Drainage of Peritoneal Cavity, Percutaneous Approach, Diagnostic (ICD-10-PCS; principal; 2017-05-09)
DX: A41.51 Sepsis due to Escherichia coli [E. coli] (principal); E43 Unspecified severe protein-calorie malnutrition; G82.20 Paraplegia, unspecified; R17 Unspecified jaundice; K72.90 Hepatic failure, unspecified without coma; E87.6 Hypokalemia; F10.10 Alcohol abuse, uncomplicated; F32.9 Major depressive disorder, single episode, unspecified; F17.210 Nicotine dependence, cigarettes, uncomplicated; F12.90 Cannabis use, unspecified, uncomplicated; G89.29 Other chronic pain; M54.9 Dorsalgia, unspecified; R55 Syncope and collapse; K70.31 Alcoholic cirrhosis of liver with ascites; I10 Essential (primary) hypertension; Z79.899 Other long term (current) drug therapy; Z79.1 Long term (current) use of non-steroidal anti-inflammatories (NSAID); Z79.2 Long term (current) use of antibiotics; Z68.20 Body mass index [BMI] 20.0-20.9, adult
CPT/HCPCS: 36415; 49083; 70450; 71010; 74000; 80048; 80053; 81001; 82140; 82274; 82962; 83605; 83735; 84132; 84484; 85027; 85610; 85730; 87040; 87071; 87075; 87086; 87186; 87205; 87641; 93005; 96361; 96365; 96375; 99406; A4215; C1729; C1892; C1894; G0480; G0481; J0692; J0696; J2310; J3010; J3490; J7030; P9046; 99291-25